=== PATIENT | female | born 1955 | race Caucasian/White ===

== ENCOUNTER → 2016-04-25 | Outpatient (CLI) | payer MEDICAID ==
[2016-04-25 10:14] LABS: Basophils # (A) 0.1 k/uL (0-0.2); Basophils % (A) 1 %; CH 31.5; Eosinophils # (A) 0.3 k/uL (0-0.7); Eosinophils % (A) 3 %; HCT 46.3 % (34.0-46.0); HDW 2.45; HGB 14.7 gm/dL (11.4-16.0); Luc # (Auto) 0.18; Luc % (Auto) 2; Lymphocytes # (A) 2.3 k/uL (1.0-4.8); Lymphocytes % (A) 29 %; MCH 30.4 pg (25.0-35.0); MCHC 31.7 g/dL (31.0-37.0); MCV 95.8 fL (80.0-100.0); Mean Platelet Volume 6.4; Monocytes # (A) 0.3 k/uL (0-1.0); Monocytes % (A) 4 %; Neutrophils # (A) 4.9 k/uL (1.3-7.7); Neutrophils % (A) 61 %; RBC 4.84 m/uL (3.80-5.40); RDW 13.5 % (11.5-15.5); WBC 8.1 k/uL (3.8-10.6); WBC (Perox) 8.47
[2016-04-25 10:25] LABS: Hemoglobin A1C 5.5 % (4.2-6.1)
[2016-04-25 10:46] LABS: ALT 23 U/L (9-52); AST 18 U/L (14-36); Alkaline Phosphatase 65 U/L (38-126); Anion Gap 11 mmol/L; Blood Urea Nitrogen 18 mg/dL (7-17); Calcium 9.4 mg/dL (8.4-10.2); Carbon Dioxide 28 mmol/L (22-30); Chloride 105 mmol/L (98-107); Cholesterol 169 mg/dL (<200); Glucose 115 mg/dL (74-99); HDL Cholesterol 49 mg/dL (40-60); Non-African American GFR(MDRD) >60 (>60 ml/min/1.73 sqM); Potassium 4.3 mmol/L (3.5-5.1); Sodium 144 mmol/L (137-145); Triglycerides 103 mg/dL (<150)
== END ==
LOC: LABWHC1 09:48
PROVIDERS: ATTEND Family Medicine
DX: E03.9 Hypothyroidism, unspecified (principal); E11.9 Type 2 diabetes mellitus without complications
CPT/HCPCS: 36415; 80053; 80061; 83036; 84443; 85025

== ENCOUNTER 2016-11-21 15:01 | Inpatient (IN) | payer MEDICAID ==
[2016-11-21] MEDS ORDERED: SODIUM CHLORIDE 0.9% 1,000 ML IV STA (15:36)
[2016-11-21] MEDS ORDERED: DILTIAZEM 125 MG in SODIUM CHLORIDE 0.9% 100 ML IV STA (15:36)
[2016-11-21] MEDS ORDERED: ASPIRIN 81 MG PO STA (15:36)
[2016-11-21] MEDS ORDERED: HEPARIN SODIUM,PORCINE 5,000 UNIT/ML 1 ML VIAL IV ONE (15:37)
--- NOTE | 2016-11-21 15:40 | ED ---
Arrhythmia/Palpitations HPI - General Chief Complaint: Arrhythmia/Palpitations Stated Complaint: Dr Gtz/Deana rate high Time Seen by Provider: 11/21/16 15:27 Source: patient, RN notes reviewed Mode of arrival: ambulatory Limitations: no limitations - History of Present Illness Initial Comments: This is a 61-year-old female with a benign history other than diabetes who states she was seen in her doctor's office today and found to have atrial fibrillation with a rapid ventricular response. She denies any chest pain shortness of breath palpitations surgical dyspnea lightheadedness dizziness or any other symptoms. She's not sure how long this is been going on. No weight loss weight gain no edema to her lower extremities. MD Complaint: atrial fibrillation - Related Data Home Medications Medication Instructions Recorded Confirmed Lovastatin [Mevacor] 40 mg PO HS 11/21/16 11/21/16 Naproxen Sodium [Aleve] 220 mg PO BID PRN 11/21/16 11/21/16 metFORMIN HCL [Glucophage] 500 mg PO BID 11/21/16 11/21/16 Allergies Allergy/AdvReac Type Severity Reaction Status Date / Time latex Allergy Rash/Hives Verified 11/21/16 16:18 Review of Systems ROS Statement: Those systems with pertinent positive or pertinent negative responses have been documented in the HPI. ROS Other: All systems not noted in ROS Statement are negative. Past Medical History Past Medical History: Diabetes Mellitus History of Any Multi-Drug Resistant Organisms: None Reported Past Surgical History: Joint Replacement Additional Past Surgical History / Comment(s): rt shoulder Past Psychological History: No Psychological Hx Reported Smoking Status: Never smoker Past Alcohol Use History: None Reported Past Drug Use History: None Reported General Exam - General Exam Comments Initial Comments: This is a well-developed well-nourished awake alert oriented x 3 female Limitations: no limitations General appearance: alert, in no apparent distress Head exam: Present: atraumatic, normocephalic, normal inspection Eye exam: Present: normal appearance, PERRL, EOMI. Absent: scleral icterus, conjunctival injection, periorbital swelling ENT exam: Present: normal exam, mucous membranes moist Neck exam: Present: normal inspection. Absent: tenderness, meningismus, lymphadenopathy Respiratory exam: Present: normal lung sounds bilaterally. Absent: respiratory distress, wheezes, rales, rhonchi, stridor Cardiovascular Exam: Present: tachycardia, irregular rhythm. Absent: systolic murmur, diastolic murmur, rubs, gallop, clicks GI/Abdominal exam: Present: soft, normal bowel sounds. Absent: distended, tenderness, guarding, rebound, rigid Extremities exam: Present: normal inspection, full ROM, normal capillary refill. Absent: tenderness, pedal edema, joint swelling, calf tenderness Back exam: Present: normal inspection Neurological exam: Present: alert, oriented X3, CN II-XII intact Psychiatric exam: Present: normal affect, normal mood Skin exam: Present: warm, dry, intact, normal color. Absent: rash Course Vital Signs 11/21/16 11/21/16 11/21/16 15:19 15:34 15:39 Temperature 97.5 F L Pulse Rate 154 H 159 H Pulse Rate [ 154 H Bilateral] Respiratory 20 20 Rate Blood Pressure 161/119 149/110 O2 Sat by Pulse 98 98 Oximetry 11/21/16 16:38 Temperature Pulse Rate 138 H Pulse Rate [ Bilateral] Respiratory 20 Rate Blood Pressure 162/92 O2 Sat by Pulse 99 Oximetry - Reevaluation(s) Reevaluation #1: 11/21/16 16:54 Patient continues to have A. fib with RVR with minimal improvement thus far. EKG Findings - EKG Results: EKG: interpreted by ERMD (Rapid atrial fibrillation with a rate of 156 QRS 88 QT since QTC of 296/[address] T-wave configuration. This is compared to an EKG submitted from the patient's doctor's office.) Medical Decision Making - Lab Data Result diagrams: 11/21/16 15:38 11/21/16 15:38 Lab Results 11/21/16 11/21/16 11/21/16 Range/Units 15:38 15:38 15:38 WBC 9.8 (3.8-10.6) k/uL RBC 4.92 (3.80-5.40) m/uL Hgb 15.6 (11.4-16.0) gm/dL Hct 47.0 H (34.0-46.0) % MCV 95.6 (80.0-100.0) fL MCH 31.7 (25.0-35.0) pg MCHC 33.2 (31.0-37.0) g/dL RDW 13.0 (11.5-15.5) % Plt Count 330 (150-450) k/uL Neutrophils % 81 % Lymphocytes % 13 % Monocytes % 4 % Eosinophils % 1 % Basophils % 1 % Neutrophils # 7.9 H (1.3-7.7) k/uL Lymphocytes # 1.3 (1.0-4.8) k/uL Monocytes # 0.4 (0-1.0) k/uL Eosinophils # 0.1 (0-0.7) k/uL Basophils # 0.1 (0-0.2) k/uL PT (9.0-12.0) sec INR (<1.2) APTT (22.0-30.0) sec Sodium 141 (137-145) mmol/L Potassium 4.3 (3.5-5.1) mmol/L Chloride 105 (98-107) mmol/L Carbon Dioxide 23 (22-30) mmol/L Anion Gap 13 mmol/L BUN 15 (7-17) mg/dL Creatinine 0.82 (0.52-1.04) mg/dL Est GFR (MDRD) Af Amer >60 (>60 ml/min/1.73 sqM) Est GFR (MDRD) Non-Af >60 (>60 ml/min/1.73 sqM) Glucose 114 H (74-99) mg/dL Calcium 9.5 (8.4-10.2) mg/dL Magnesium 1.9 (1.6-2.3) mg/dL Total Bilirubin 0.6 (0.2-1.3) mg/dL AST 19 (14-36) U/L ALT 29 (9-52) U/L Alkaline Phosphatase 76 (38-126) U/L Total Creatine Kinase 72 (30-135) U/L CK-MB (CK-2) 2.6 H* (0.0-2.4) ng/mL CK-MB (CK-2) Rel Index 3.6 Troponin I <0.012 (0.000-0.034) ng/mL Total Protein 7.2 (6.3-8.2) g/dL Albumin 4.2 (3.5-5.0) g/dL TSH 1.890 (0.465-4.680) mIU/L 11/21/16 Range/Units 15:38 WBC (3.8-10.6) k/uL RBC (3.80-5.40) m/uL Hgb (11.4-16.0) gm/dL Hct (34.0-46.0) % MCV (80.0-100.0) fL MCH (25.0-35.0) pg MCHC (31.0-37.0) g/dL RDW (11.5-15.5) % Plt Count (150-450) k/uL Neutrophils % % Lymphocytes % % Monocytes % % Eosinophils % % Basophils % % Neutrophils # (1.3-7.7) k/uL Lymphocytes # (1.0-4.8) k/uL Monocytes # (0-1.0) k/uL Eosinophils # (0-0.7) k/uL Basophils # (0-0.2) k/uL PT 10.7 (9.0-12.0) sec INR 1.1 (<1.2) APTT 22.8 (22.0-30.0) sec Sodium (137-145) mmol/L Potassium (3.5-5.1) mmol/L Chloride (98-107) mmol/L Carbon Dioxide (22-30) mmol/L Anion Gap mmol/L BUN (7-17) mg/dL Creatinine (0.52-1.04) mg/dL Est GFR (MDRD) Af Amer (>60 ml/min/1.73 sqM) Est GFR (MDRD) Non-Af (>60 ml/min/1.73 sqM) Glucose (74-99) mg/dL Calcium (8.4-10.2) mg/dL Magnesium (1.6-2.3) mg/dL Total Bilirubin (0.2-1.3) mg/dL AST (14-36) U/L ALT (9-52) U/L Alkaline Phosphatase (38-126) U/L Total Creatine Kinase (30-135) U/L CK-MB (CK-2) (0.0-2.4) ng/mL CK-MB (CK-2) Rel Index Troponin I (0.000-0.034) ng/mL Total Protein (6.3-8.2) g/dL Albumin (3.5-5.0) g/dL TSH (0.465-4.680) mIU/L - Radiology Data Radiology results: report reviewed (I did review the x-ray report no acute findings.), image reviewed Critical Care Time Critical Care Time: Yes Critical Care Time: 33 minutes of critical care time which includes initial presentation with history physical labs x-rays. Several reevaluation of the patient to responsive therapy. Discussed with the patient and her regarding findings. Discussion with the admitting physician admission orders and documentation of the above Disposition Clinical Impression: Persistent atrial fibrillation with RVR Disposition: ADMITTED IP TO THIS HOSP Condition: Stable Referrals: Sofia White MD [Primary Care Provider] - 1-2 days
[2016-11-21] MEDS: HEPARIN SODIUM,PORCINE/D5W PMX 25,000 UNIT in DEXTROSE/WATER 1 500ML.BAG IV SCH (15:45)
[2016-11-21 15:53] LABS: Basophils # (A) 0.1 k/uL (0-0.2); Basophils % (A) 1 %; CH 31.7; CHCM 33.3; Eosinophils # (A) 0.1 k/uL (0-0.7); Eosinophils % (A) 1 %; HDW 2.38; HGB 15.6 gm/dL (11.4-16.0); Luc # (Auto) 0.11; Luc % (Auto) 1; Lymphocytes # (A) 1.3 k/uL (1.0-4.8); Lymphocytes % (A) 13 %; MCH 31.7 pg (25.0-35.0); MCHC 33.2 g/dL (31.0-37.0); MCV 95.6 fL (80.0-100.0); Mean Platelet Volume 6.8; Monocytes # (A) 0.4 k/uL (0-1.0); Monocytes % (A) 4 %; Neutrophils # (A) 7.9 k/uL (1.3-7.7); Neutrophils % (A) 81 %; RBC 4.92 m/uL (3.80-5.40); WBC 9.8 k/uL (3.8-10.6); WBC (Perox) 9.78
[2016-11-21 16:03] LABS: INR 1.1 (<1.2); Partial Thromboplastin Time 22.8 sec (22.0-30.0); Prothrombin Time 10.7 sec (9.0-12.0)
[2016-11-21 16:05] LABS: ALT 29 U/L (9-52); AST 19 U/L (14-36); Alkaline Phosphatase 76 U/L (38-126); Anion Gap 13 mmol/L; Blood Urea Nitrogen 15 mg/dL (7-17); Calcium 9.5 mg/dL (8.4-10.2); Carbon Dioxide 23 mmol/L (22-30); Chloride 105 mmol/L (98-107); Glucose 114 mg/dL (74-99); Magnesium 1.9 mg/dL (1.6-2.3); Non-African American GFR(MDRD) >60 (>60 ml/min/1.73 sqM); Potassium 4.3 mmol/L (3.5-5.1); Sodium 141 mmol/L (137-145); Total Bilirubin 0.6 mg/dL (0.2-1.3); Total Protein 7.2 g/dL (6.3-8.2)
[2016-11-21 16:07] LABS: Creatine Kinase 72 U/L (30-135)
--- NOTE | 2016-11-21 16:13 | XR ---
EXAMINATION TYPE: XR chest 2V DATE OF EXAM: 11/21/2016 COMPARISON: NONE HISTORY: Shortness of breath TECHNIQUE: Frontal and lateral views of the chest are obtained. FINDINGS: Scattered senescent parenchymal changes noted. Hyperinflation compatible with COPD. No evidence for infiltrate. No evidence for atelectasis. Heart size is enlarged. Mediastinal structures are stable and grossly unremarkable. No evidence for hilar prominence. Degenerative changes dorsal spine. IMPRESSION: 1. No evidence for acute pulmonary disease.
[2016-11-21 16:19] LABS: Troponin I <0.012 ng/mL (0.000-0.034)
[2016-11-21 16:23] LABS: Creatine Kinase MB 2.6 ng/mL (0.0-2.4)
[2016-11-21] MEDS ORDERED: MAGNESIUM SULFATE-D5W PMX 1 GM in DEXTROSE/WATER 1 100ML.BAG IVPB ONE (16:53)
[2016-11-21] MEDS ORDERED: DILTIAZEM 5 MG/ML 5 ML VIAL IVP STA (16:53)
[2016-11-21] MEDS ORDERED: NALOXONE 0.4 MG/ML 1 ML VIAL IV PRN (16:56)
[2016-11-21] MEDS ORDERED: NAPROXEN 250 MG TAB PO PRN (16:57)
[2016-11-21 17:47] LABS: Glucose,Whole Blood 127 mg/dL (75-99)
[2016-11-21] MEDS: INSULIN LISPRO (humaLOG) 300 UNIT/3 ML VIAL SQ SCH ×2 (17:59→21:55)
[2016-11-21] MEDS: metFORMIN 500 MG TAB PO SCH (18:26)
[2016-11-21 20:55] LABS: Glucose,Whole Blood 106 mg/dL (75-99)
[2016-11-21] MEDS ORDERED: ATORVASTATIN 10 MG TAB PO SCH (21:00)
[2016-11-21 21:34] LABS: Hemoglobin A1C 5.5 % (4.2-6.1)
[2016-11-21] MEDS ORDERED: HEPARIN SODIUM,PORCINE 5,000 UNIT/ML 1 ML VIAL IV PRN (22:34)
[2016-11-21 23:13] VITALS: RESP 16
--- NOTE | 2016-11-22 05:38 | HP ---
HISTORY AND PHYSICAL DATE OF ADMISSION: 11/21/2016 CHIEF COMPLAINT: Atrial fibrillation. HISTORY OF PRESENT ILLNESS: This 61-year-old woman with a past medical history of multiple medical problems including diabetes mellitus, history of DJD being followed by Dr. White in the outpatient setting. The patient was apparently in the office today for a checkup and evaluation showed high pulse rate . Patient taken to [facility] and admitted to the hospital for further evaluation and treatment. Patient started on Cardizem and heparin. The patient running heart rate is getting controlled but still elevated and with irregularity also. Cardiology evaluation in progress. There is no history of fever, rigors. No history of headache, loss of consciousness or seizures. PAST MEDICAL HISTORY: Hypertension and diabetes mellitus, type 2. HOME MEDICATIONS: 1. Metformin 500 mg p.o. b.i.d. 2. Aleve 220 mg b.i.d. p.r.n. 3. Mevacor 40 mg q.h.s. ALLERGIES: LATEX. FAMILY HISTORY: No history of heart disease or strokes in the family. SOCIAL HISTORY: No history of smoking. No history of alcohol. REVIEW OF SYSTEMS: ENT: No diminished vision or hearing. Cardiovascular as mentioned. Respiratory : There is no cough or hemoptysis. GI no nausea or vomiting. no dysuria. Nervous system no numbness, weakness. Allergy no asthma or hayfever. Musculoskeletal: As mentioned earlier. Hematology/Oncology: No history of anemia. Endocrine as mentioned earlier. Constitutional: As mentioned earlier. Dermatology: Negative. Rheumatology negative. Psychiatric is negative. PHYSICAL EXAMINATION: Alert and oriented times three. Pulse is 130 and irregular. Blood pressure is 140/70, respiration 18, temperature 97.3, pulse ox 97% on room air. HEENT conjunctivae normal. Oral mucosa moist. Neck is no jugular venous distention. No carotid bruit. No lymph node enlargement. Cardiovascular system: S1, S2 irregular. No S3, no S4. Respiratory: Breath sounds diminished at the bases no rhonchi, no crackles. ABDOMEN: Soft, nontender. No mass palpable. No carotid bruit. No lymph node enlargement. No hepatosplenomegaly. Legs no edema. No swelling. Nervous system: Higher functions as mentioned earlier. Moves all four limbs. No focal deficits. Lymphatics: No lymph nodes palpable in the neck, axillae or groin. Skin no ulcer, rash or bleeding. LABS: CBC within normal limits. Glucose 149. ASSESSMENT: 1. Atrial fibrillation with fast ventricular rate. New onset. 2. Diabetes mellitus type 2. 3. Degenerative joint disease. RECOMMENDATIONS AND DISCUSSION: In this 61-year-old woman who presented with multiple complex medical issues, we will monitor the patient closely. Continue the current management and symptomatic treatment. I recommend resume the home medications. Monitor blood sugars closely. Otherwise continue the Cardizem, continue IV heparin, 2D echo with Doppler. Cardiology consultation. Otherwise, we will continue to monitor. Overall prognosis guarded. Further recommendations to follow. Copy of dictation being forwarded to Dr. White who is the primary care physician. Patient might be a candidate for oral anticoagulant agents. MMODL / IJN: [id number] / MTDBari
[2016-11-22 06:24] LABS: Glucose,Whole Blood 121 mg/dL (75-99)
[2016-11-22] MEDS: INSULIN LISPRO (humaLOG) 300 UNIT/3 ML VIAL SQ SCH ×4 (06:29→20:57)
[2016-11-22] MEDS: metFORMIN 500 MG TAB PO SCH (06:55)
--- NOTE | 2016-11-22 09:49 | ECHOF ---
Referral Reason:afib MEASUREMENTS -------- HEIGHT: 162.6 cm WEIGHT: 95.3 kg BP: 130/86 RVIDd: 3.7 cm (< 3.3) IVSd: 1.3 cm (0.6 - 1.1) LVIDd: 5.7 cm (3.9 - 5.3) LVPWd: 1.3 cm (0.6 - 1.1) IVSs: 1.7 cm LVIDs: 3.6 cm LVPWs: 1.8 cm LA Diam: 4.9 cm (2.7 - 3.8) LAESV Index (A-L): 50.39 ml/m Ao Diam: 3.0 cm (2.0 - 3.7) AV Cusp: 2.3 cm (1.5 - 2.6) MV EXCURSION: 11.800 mm (> 18.000) MV EF SLOPE: 49 mm/s (70 - 150) EPSS: 1.8 cm RAP: 5.00 mmHg RVSP: 30.96 mmHg FINDINGS -------- Atrial fibrillation. This was a technically good study. The left ventricle is mildly dilated. There is mild concentric left ventricular hypertrophy. Overall left ventricular systolic function is moderate-severely impaired with, an EF between 30 - 35 %. The right ventricle is mildly enlarged. LA is severely dilated >40 ml/m2 The right atrium is normal in size. There is mild aortic valve sclerosis. Mild mitral annular calcification present. Mild mitral regurgitation is present. Mild tricuspid regurgitation present. Right ventricular systolic pressure is normal at < 35 mmHg. Trace/mild (physiologic) pulmonic regurgitation. The aortic root size is normal. Normal inferior vena cava with normal inspiratory collapse consistent with estimated right atrial pressure of 5 mmHg. There is no pericardial effusion. CONCLUSIONS -------- 1. Atrial fibrillation. 2. Mild mitral annular calcification present. 3. Mild mitral regurgitation is present. 4. Mild tricuspid regurgitation present. 5. Right ventricular systolic pressure is normal at < 35 mmHg. 6. Trace/mild (physiologic) pulmonic regurgitation. 7. The aortic root size is normal. 8. Normal inferior vena cava with normal inspiratory collapse consistent with estimated right atrial pressure of 5 mmHg. 9. There is no pericardial effusion. 10. This was a technically good study. 11. The left ventricle is mildly dilated. 12. There is mild concentric left ventricular hypertrophy. 13. Overall left ventricular systolic function is moderate-severely impaired with, an EF between 30 - 35 %. 14. The right ventricle is mildly enlarged. 15. LA is severely dilated >40 ml/m2 16. The right atrium is normal in size. 17. There is mild aortic valve sclerosis. CLINICAL NURSING COORDINATOR: Valorie Lorenzana RDCS
--- NOTE | 2016-11-22 10:30 | P.CRDCN ---
History of Present Illness Consult date: 11/22/16 Requesting physician: Nick Chau Reason for Consult (text): AF w/RVR History of present illness: This is a pleasant 61-year-old female patient with a history of diabetes and hyperlipidemia. She presented to the emergency department after being seen by her primary care physician for routine follow-up and was found to be in atrial fibrillation with rapid ventricular response with a rate in the 150s. Upon visitation in the emergency Department patient was found to be in atrial fibrillation with rapid ventricular response with a rate in the 150s with ST-T wave abnormalities. Chest x-ray showed no acute cardiopulmonary process. Potassium and magnesium were within normal limits. TSH is normal with BUN of 15 and creatinine of 0.82. First troponin less than 0.012. She was started on Cardizem drip, after receiving 15 mg bolus, at 5 mg an hour. We obtained a 2-D echo with Doppler this morning shows moderate to severely impaired LV systolic function with an ejection fraction of 30-35% with a mildly dilated LV, mild mitral regurgitation and mild tricuspid regurgitation. She has not been experiencing any palpitations, chest discomfort, shortness of breath, orthopnea, dizziness, lightheadedness or syncope. She has not noticed any lower extremity edema. In speaking with her, it sounds as if she has had an episode of atrial fibrillation rapid ventricular response about 20 years ago she followed for a short time with cardiology underwent stress testing and echo at that time which according to the patient was all normal. Past Medical History Past Medical History: Diabetes Mellitus, Hyperlipidemia Additional Past Medical History / Comment(s): BRONCHITIS, ECZEMA History of Any Multi-Drug Resistant Organisms: None Reported Past Surgical History: Joint Replacement Additional Past Surgical History / Comment(s): rt shoulder HEMIARTHROPLASTY, COLONOSCOPY Past Anesthesia/Blood Transfusion Reactions: No Reported Reaction Smoking Status: Never smoker - Past Family History Mother Family Medical History: Cancer Additional Family Medical History / Comment(s): STOMACH CANCER Father History Unknown: Yes Additional Family Medical History / Comment(s): AT AGE 87 NOT SURE OF THE CAUSE Medications and Allergies Home Medications Medication Instructions Recorded Confirmed Type Lovastatin [Mevacor] 40 mg PO HS 11/21/16 11/21/16 History Naproxen Sodium [Aleve] 220 mg PO BID PRN 11/21/16 11/21/16 History metFORMIN HCL [Glucophage] 500 mg PO BID 11/21/16 11/21/16 History Allergies Allergy/AdvReac Type Severity Reaction Status Date / Time latex Allergy Rash/Hives Verified 11/21/16 16:18 Physical Exam Vitals: Vital Signs Temp Pulse Pulse Resp BP BP Pulse Ox 11/22/16 07:57 97.1 F L 102 H 16 140/83 98 11/22/16 04:00 97.4 F L 96 16 130/86 98 11/22/16 00:00 97.6 F 94 16 145/83 97 11/21/16 20:00 97.7 F 88 16 136/66 97 11/21/16 18:28 97.3 F L 113 H 18 145/71 97 11/21/16 17:24 97.8 F 11/21/16 17:16 98 16 124/85 99 11/21/16 16:38 138 H 20 162/92 99 11/21/16 15:39 154 H 11/21/16 15:34 159 H 20 149/110 98 11/21/16 15:19 97.5 F L 154 H 20 161/119 98 Intake and Output 11/21/16 11/22/16 11/22/16 22:59 06:59 14:59 Intake Total 376.325 365 Balance 376.325 365 Intake: Intake, IV Titration 136.325 125 Amount Diltiazem 125 mg In 25 Sodium Chloride 0.9% 100 ml @ 5 MG/HR 5 mls/hr IV .Q24H STA Rx#:[id number] Heparin Sodium,Porcine/ 136.325 D5w Pmx 25,000 unit In Dextrose/Water 1 500ml. bag @ 11 UNITS/KG/HR 19. 95 mls/hr IV .Q24H CARMELITA Rx #:[id number] Magnesium Sulfate-D5w Pmx 100 1 gm In Dextrose/Water 1 100ml.bag @ 100 mls/hr IVPB ONCE ONE Rx#: [id number] Oral 240 240 Other: Voiding Method Toilet Toilet # Voids 2 Weight 90.718 kg 95.4 kg PHYSICAL EXAMINATION: HEENT: Head is atraumatic, normocephalic. Pupils equal, round. Neck is supple. There is no elevated jugular venous pressure. HEART EXAMINATION: Heart sounds irregularly irregular, S1 and S2 normal. No murmur or gallop heard. CHEST EXAMINATION: Lungs are clear to auscultation and precussion. No chest wall tenderness is noted on palpation or with deep breathing. ABDOMEN: Soft, nontender. Bowel sounds are heard. No organomegaly noted. EXTREMITIES: 2+ peripheral pulses with no evidence of peripheral edema and no calf tenderness noted. NEUROLOGIC patient is awake, alert and oriented x3. . Results 11/21/16 15:38 11/21/16 15:38 Cardiac Enzymes 11/21/16 11/21/16 Range/Units 15:38 15:38 AST 19 (14-36) U/L CK-MB (CK-2) 2.6 H* (0.0-2.4) ng/mL Troponin I <0.012 (0.000-0.034) ng/mL Coagulation 11/21/16 11/21/16 11/22/16 Range/Units 15:38 21:28 04:27 PT 10.7 (9.0-12.0) sec APTT 22.8 37.8 H 53.8 H (22.0-30.0) sec CBC 11/21/16 Range/Units 15:38 WBC 9.8 (3.8-10.6) k/uL RBC 4.92 (3.80-5.40) m/uL Hgb 15.6 (11.4-16.0) gm/dL Hct 47.0 H (34.0-46.0) % Plt Count 330 (150-450) k/uL Comprehensive Metabolic Panel 11/21/16 Range/Units 15:38 Sodium 141 (137-145) mmol/L Potassium 4.3 (3.5-5.1) mmol/L Chloride 105 (98-107) mmol/L Carbon Dioxide 23 (22-30) mmol/L BUN 15 (7-17) mg/dL Creatinine 0.82 (0.52-1.04) mg/dL Glucose 114 H (74-99) mg/dL Calcium 9.5 (8.4-10.2) mg/dL AST 19 (14-36) U/L ALT 29 (9-52) U/L Alkaline Phosphatase 76 (38-126) U/L Total Protein 7.2 (6.3-8.2) g/dL Albumin 4.2 (3.5-5.0) g/dL Current Medications Generic Name Dose Route Start Last Admin Trade Name Freq PRN Reason Stop Dose Admin Atorvastatin Calcium 10 mg 11/21/16 21:00 11/21/16 21:56 Lipitor PO 10 mg HS CARMELITA Administration Heparin Sodium (Porcine) 0 unit 11/21/16 22:34 11/22/16 00:25 Heparin IV 4,000 unit PER PROTOCOL PRN Administration Low PTT Protocol Diltiazem HCl 125 mg/ Sodium 125 mls @ 5 mls/hr 11/21/16 15:36 11/21/16 16:21 Chloride IV 11/22/16 15:35 5 mg/hr .Q24H STA 5 mls/hr Protocol Administration 5 MG/HR Heparin Sodium/Dextrose 25,000 500 mls @ 19.95 mls/hr 11/21/16 15:45 22:35 unit/ IV Solution IV 14 units/kg/hr .Q24H CARMELITA 25.4 mls/hr Protocol Titration 11 UNITS/KG/HR Insulin Human Lispro 0 unit 11/21/16 17:30 11/22/16 06:29 Humalog SQ Not Given ACHS [facility] Protocol Metformin HCl 500 mg 11/21/16 17:30 11/22/16 06:55 Glucophage PO 500 mg AC-BID CARMELITA Administration Naloxone HCl 0.2 mg 11/21/16 16:56 Narcan IV Q2M PRN Opioid Reversal Naproxen 250 mg 11/21/16 16:57 Naprosyn PO BID PRN Mild Pain Intake and Output 11/21/16 11/22/16 11/22/16 22:59 06:59 14:59 Intake Total 376.325 365 Balance 376.325 365 Intake: Intake, IV Titration 136.325 125 Amount Diltiazem 125 mg In 25 Sodium Chloride 0.9% 100 ml @ 5 MG/HR 5 mls/hr IV .Q24H STA Rx#:[id number] Heparin Sodium,Porcine/ 136.325 D5w Pmx 25,000 unit In Dextrose/Water 1 500ml. bag @ 11 UNITS/KG/HR 19. 95 mls/hr IV .Q24H CARMELITA Rx #:[id number] Magnesium Sulfate-D5w Pmx 100 1 gm In Dextrose/Water 1 100ml.bag @ 100 mls/hr IVPB ONCE ONE Rx#: [id number] Oral 240 240 Other: Voiding Method Toilet Toilet # Voids 2 Weight 90.718 kg 95.4 kg 11/21/16 15:38 11/21/16 15:38 EKG Interpretations (text) A fibrillation with rapid ventricular response Assessment and Plan Plan: Assessment and plan #1 atrial fibrillation with rapid ventricular response, new onset, duration unknown #2 cardiomyopathy of unknown etiology with an ejection fraction of 30-35% #3 diabetes #4 hyperlipidemia #5 newly diagnosed hypertension Transportation Analyst perspective, we will start the patient on a beta darby and HARVINDER inhibitor. According to Silvestre Vasc score, patient will require long-term anticoagulation. We will check coverage for Eliquis. Continue Heparin for now. We will schedule the patient for cardiac catheterization tomorrow to rule out underlying CAD as cause of cardiomyopathy. Further recommendations to follow. POOL COORDINATOR note has been reviewed, I agree with a documented findings and plan of care. Patient was seen and examined.
[2016-11-22 11:38] LABS: Glucose,Whole Blood 111 mg/dL (75-99)
[2016-11-22] MEDS ORDERED: METOPROLOL TARTRATE 25 MG TAB PO SCH (12:00)
[2016-11-22] MEDS: LISINOPRIL 2.5 MG TAB PO SCH (12:51)
[2016-11-22] MEDS ORDERED: NITROGLYCERIN SL TABS 0.4 MG TAB SUBLINGUAL PRN (12:58)
[2016-11-22] MEDS ORDERED: ALPRAZolam 0.25 MG TAB PO PRN (12:58)
[2016-11-22] MEDS ORDERED: ATORVASTATIN 80 MG TAB PO STA (12:58)
[2016-11-22] MEDS ORDERED: ASPIRIN 325 MG TAB PO STA (12:58)
[2016-11-22] MEDS ORDERED: ALPRAZolam 0.5 MG TAB PO PRN (12:58)
[2016-11-22] MEDS ORDERED: SODIUM CHLORIDE 0.9% 1,000 ML in EMPTY BAG 1 BAG IV ONE (12:58)
--- NOTE | 2016-11-22 13:06 | P.PN ---
Progress Note - Text This is an addendum to the dictated cardiology consultation. The patient presented to her primary care physician's office and was noted to be tachycardic , and atrial fibrillation of unknown duration. She has no knowledge of the arrhythmia and denies any change in her energy, breathing or symptoms of dizziness. She is active physically without significant limitations. She had an episode of arrhythmia and palpitation 20 years ago and workup was unremarkable without any recurrence since. On the physical examination she has no signs of heart failure, no peripheral edema or lung congestion. In view of the cardiomyopathy noted on the echocardiogram, the atrial fibrillation of unknown duration but recent diagnosis, a history of diabetes and hyperlipidemia I would recommend to add a beta darby and an HARVINDER inhibitor and I would recommend to proceed with cardiac catheterization to further assess her status and guide her treatment. Depending on the outcome of her testing further recommendations will be made. Thank you for this consult we will follow with you.
[2016-11-22] MEDS: HEPARIN SODIUM,PORCINE/D5W PMX 25,000 UNIT in DEXTROSE/WATER 1 500ML.BAG IV SCH (16:46)
[2016-11-22 16:47] LABS: Glucose,Whole Blood 99 mg/dL (75-99)
--- NOTE | 2016-11-22 17:06 | PN ---
PROGRESS NOTE DATE OF SERVICE: 11/22/2016 This 61-year-old woman who presented with significant atrial fibrillation with fast ventricular rate also had a 2D echo. The 2D echo showed ejection fraction about 30% to 35% of undetermined etiology. The patient is being closely monitored. Patient is on Cardizem drip as well as heparin drip. LA was more than 40 mL/square meter. No chest pain. No palpitations. PHYSICAL EXAMINATION: On exam, alert and oriented x3. Pulse is 102, tachycardic, regular. Blood pressure 137/90, respiration 16, temperature 97.1, pulse ox 97% on room air. HEENT: Conjunctivae normal. Oral mucosa moist. NECK: No jugular venous distention. No carotid bruit. No lymph node enlargement. CARDIOVASCULAR SYSTEM: S1, S2 irregular. Patient No S3. No S4. RESPIRATORY SYSTEM: Breath sounds diminished at the bases. A few rhonchi. No crackles. ABDOMEN: Soft, nontender. No mass palpable. LEGS: No edema. No swelling. NERVOUS SYSTEM: Higher functions as mentioned earlier. Moves all 4 limbs. No focal motor or sensory deficit. LYMPHATICS: No lymph node palpable in neck, axillae or groin. SKIN: No ulcer, rash, bleeding. LABS: Labs at this time show APTT noted. Otherwise, glucose 111, magnesium 2.4. ASSESSMENT: 1. Atrial fibrillation with fast ventricular rate, new onset. 2. Ejection fraction 30% to 35% with chronic systolic dysfunction, possibly cardiomyopathy. 3. Diabetes mellitus, type 2. 4. Degenerative joint disease. 5. Increased random blood sugar. RECOMMENDATIONS AND DISCUSSION: In this 61-year-old woman who presented with multiple complex medical issues, we will monitor the patient closely, continue the current medications, continue with symptomatic treatment. Otherwise at this time I would recommend continuing with Cardizem. Continue with IV heparin. Outpatient Eliquis. Further recommendations to follow. MMODL / IJN: [id number] / [id number]
[2016-11-22 20:54] LABS: Glucose,Whole Blood 124 mg/dL (75-99)
[2016-11-22] MEDS: METOPROLOL TARTRATE 50 MG TAB PO SCH (20:59)
[2016-11-23 06:14] LABS: CH 31.8; HCT 41.6 % (34.0-46.0); HDW 2.34; HGB 13.8 gm/dL (11.4-16.0); MCHC 33.1 g/dL (31.0-37.0); MCV 96.8 fL (80.0-100.0); Mean Platelet Volume 6.8; RDW 13.1 % (11.5-15.5); WBC 7.3 k/uL (3.8-10.6)
[2016-11-23] MEDS: INSULIN LISPRO (humaLOG) 300 UNIT/3 ML VIAL SQ SCH ×4 (06:25→21:03)
[2016-11-23 06:34] LABS: Anion Gap 7 mmol/L; Blood Urea Nitrogen 15 mg/dL (7-17); Carbon Dioxide 24 mmol/L (22-30); Chloride 109 mmol/L (98-107); Glucose 97 mg/dL (74-99); Non-African American GFR(MDRD) >60 (>60 ml/min/1.73 sqM); Potassium 3.8 mmol/L (3.5-5.1); Sodium 140 mmol/L (137-145)
[2016-11-23 06:37] LABS: Glucose,Whole Blood 126 mg/dL (75-99)
[2016-11-23] MEDS: LISINOPRIL 2.5 MG TAB PO SCH ×2 (07:01→21:15)
[2016-11-23] MEDS: METOPROLOL TARTRATE 50 MG TAB PO SCH ×3 (07:01→21:14)
[2016-11-23] MEDS ORDERED: ASPIRIN 325 MG TAB PO STA (08:04)
[2016-11-23] MEDS ORDERED: fentaNYL (PF) 50 MCG/ML 2 ML AMP ONE (10:31)
[2016-11-23] MEDS ORDERED: LIDOCAINE 2% INJ 20 MG/ML (20 ML MDV) ONE (10:31)
[2016-11-23] MEDS ORDERED: diphenhydrAMINE 50 MG/ML 1 ML VIAL ONE (10:31)
[2016-11-23] MEDS ORDERED: VERAPAMIL 2.5 MG/ML 2 ML AMP ONE (10:31)
[2016-11-23] MEDS ORDERED: IV FLUID CONTINUATION 1,000 ML IV ONE (10:45)
[2016-11-23] MEDS ORDERED: fentaNYL (PF) 50 MCG/ML 2 ML AMP IV ONE (10:54)
[2016-11-23] MEDS ORDERED: diphenhydrAMINE 50 MG/ML 1 ML VIAL IVP ONE (10:54)
[2016-11-23] MEDS ORDERED: METOPROLOL TARTRATE 5 MG/5 ML VIAL IVP ONE (11:04)
[2016-11-23] MEDS: METOPROLOL TARTRATE 5 MG/5 ML VIAL IVP ONE ×2 (11:06→11:11)
[2016-11-23] MEDS ORDERED: HEPARIN SODIUM 1,000 UN/ML (10ML VL) ONE (11:09)
[2016-11-23] MEDS ORDERED: LIDOCAINE 2% INJ 20 MG/ML SQ ONE (11:10)
[2016-11-23] MEDS ORDERED: VERAPAMIL SYRINGE (5 MG/10 ML) INTRAARTER ONE (11:11)
[2016-11-23] MEDS ORDERED: HEPARIN SODIUM 1,000 UN/ML (10ML VL) IV ONE (11:12)
[2016-11-23] MEDS ORDERED: IOHEXOL 350 MG/ML 125ML BOTTLE INJ ONE (11:25)
[2016-11-23] MEDS ORDERED: RX INFO: IV CONTRAST WAS GIVEN 1 EACH MISC MISCELLANE PRN (11:36)
[2016-11-23] MEDS ORDERED: SODIUM CHLORIDE 0.9% 1,000 ML IV SCH (11:45)
[2016-11-23 12:25] LABS: Glucose,Whole Blood 106 mg/dL (75-99)
--- NOTE | 2016-11-23 13:01 | CC ---
CARDIAC CATHETERIZATION REPORT Mrs. Vazquez is a 61-year-old female with known history of diabetes and hyperlipidemia, who presented with evidence of atrial fibrillation and her echocardiogram revealed evidence of severe cardiomyopathy of unknown etiology. In view of her presentation and her risk factors, recommendations were made regarding cardiac catheterization. The procedure as well as the risks and complication were discussed with the patient who is in full understanding and agreement. PROCEDURE: Patient was brought to label folder in a fasting semi-sedated state after receiving fentanyl and Benadryl and achieving moderate conscious sedated state. Using Xylocaine anesthesia in the Seldinger technique, a 6-[place] sheath was introduced in the right radial artery. Selective right and left coronary angiography was performed using 5- [place] 3-1/2 bend right and left Vickey catheter. Multiple view of the coronary artery including hemiaxial views were obtained. Following that, 5-[place] tight pigtail catheter was introduced in the left ventricle and a 30-degree ORTEGA view of the left ventricle was obtained. Following that, catheter and sheath were removed. Hemostasis was obtained with deployment of a TR band. There was no immediate complication. Patient was returned to her room in stable condition. Of note, the patient received 5000 units of intravenous heparin as well as intra-arterial verapamil. FINDINGS: FLUOROSCOPY: There was mild calcification involving the proximal left anterior descending artery. LEFT MAIN: This is a large-size vessel, trifurcating into the left anterior descending artery, ramus intermedius, and left circumflex. Left main coronary artery has no evidence of high-grade stenosis. LEFT ANTERIOR DESCENDING ARTERY: This is a large-size vessel reaching to the apex giving rise to 2 diagonal branches. The left anterior descending artery has mild intimal disease proximally of 20% without any evidence of high-grade stenosis. RAMUS INTERMEDIUS: This is a moderately-sized vessel reaching to the apical lateral wall and has no evidence of high-grade stenosis. LEFT CIRCUMFLEX: This is a codominant vessel giving rise to 2 large obtuse marginal branches distally to a small PDA and a PLV. The left circumflex and its branches have no evidence of obstructive coronary artery disease. RIGHT CORONARY ARTERY: This is a moderately-size codominant vessel giving rise to a PDA distally. The PLV is small. The right coronary artery and its branches have no evidence of obstructive coronary artery disease. LEFT VENTRICULOGRAM: Left ventriculogram is performed in 30-degree ORTEGA view and a revealed dilated left ventricle with severe global hypokinesis. Ejection fraction 30% to 35% with arrhythmia induced mitral regurgitation. HEMODYNAMICS: There was no gradient across the aortic valve. The left ventricular end- diastolic pressure was 16 to 18 mmHg. CONCLUSION: 1. Mild intimal disease in the left anterior descending artery. 2. Severely impaired left ventricular systolic function. RECOMMENDATION: Those finding are consistent with nonischemic cardiomyopathy. At this time, we will optimize her medical regimen and depending on her progress, further recommendation will be made. Those findings and recommendation were discussed with the patient and her family who are in full understanding and agreement. Duration of the procedure is 32 minutes. MMODL / IJN: [id number] /
--- NOTE | 2016-11-23 13:07 | LTR ---
November 23, 2016 Re: Rosemarie Salinasberry Dear Dr. White: I had the opportunity to perform cardiac catheterization on Mrs. Vazquez at [facility] the 23 of November and a full copy of the procedure note will be forwarded to you. In brief, she was found to have mild intimal disease involving the proximal LAD with a severely impaired left ventricular systolic function consistent with nonischemic cardiomyopathy and based on those findings, I recommend to continue on the present medical regimen with aggressive adjustment of her treatment and depending on her progress further recommendation will be made. Thank you again for allowing me the opportunity to participate in her care. Please feel free to call for any questions. Sincerely yours, MD ROCKY Cassidy / MALN: [id number] /
[2016-11-23] MEDS: SPIRONOLACTONE 25 MG TAB PO SCH (16:47)
[2016-11-23 17:01] LABS: Glucose,Whole Blood 77 mg/dL (75-99)
[2016-11-23] MEDS ORDERED: RIVAROXABAN 10 MG TAB PO SCH (17:30)
--- NOTE | 2016-11-23 17:43 | PN ---
PROGRESS NOTE DATE OF SERVICE: 11/23/2016 This 61-year-old woman was admitted with atrial fibrillation, also with features of cardiomyopathy. Cardiac catheterization done by Cardiology today showed only mild intimal disease. Otherwise, severely impacted LV dysfunction was noted. No chest pain. No palpitations. No fever. The heart rate is improved. PHYSICAL EXAM: Alert and oriented x3. The pulse is 80, blood pressure is 113/71, respirations 16, temperature is 97 degrees, pulse ox is 97% on room. HEENT: Conjunctivae normal. Oral mucosa moist. NECK: No jugular venous distention. No carotid bruits. No lymph node enlargement. CARDIOVASCULAR: S1, S2 muffled. RESPIRATORY: Breath sounds diminished in the bases. No rhonchi. No crackles. ABDOMEN: Soft, nontender. LEGS: No edema. No swelling. NERVOUS SYSTEM: No focal deficits. LABS: CBC within normal limits. Sodium 140, potassium 3.8. ASSESSMENT: 1. Atrial fibrillation with a fast ventricular rate, new onset, paroxysmal. 2. Ejection fraction 30% to 35% with chronic systolic dysfunction, possibly cardiomyopathy. 3. Status post cardiac catheterization showing only minimal intimal disease. 4. Diabetes type 2. 5. Degenerative joint disease history. 6. Increased random blood sugar. RECOMMENDATIONS AND DISCUSSION: Continue current medications and continue symptomatic treatment. Otherwise at this time I recommend to continue with current medications. Xarelto has been initiated otherwise cardiac cath reports noted. Guarded prognosis. Further recommendations to follow. MMODL / IJN: [id number] /
[2016-11-23 20:47] LABS: Glucose,Whole Blood 85 mg/dL (75-99)
[2016-11-23] MEDS ORDERED: ATORVASTATIN 40 MG TAB PO SCH (21:00)
[2016-11-24 06:15] LABS: Glucose,Whole Blood 90 mg/dL (75-99)
[2016-11-24] MEDS: INSULIN LISPRO (humaLOG) 300 UNIT/3 ML VIAL SQ SCH ×2 (06:28→11:28)
[2016-11-24 06:41] LABS: Anion Gap 8 mmol/L; Blood Urea Nitrogen 16 mg/dL (7-17); Calcium 9.2 mg/dL (8.4-10.2); Carbon Dioxide 26 mmol/L (22-30); Chloride 106 mmol/L (98-107); Glucose 89 mg/dL (74-99); Non-African American GFR(MDRD) >60 (>60 ml/min/1.73 sqM); Potassium 3.9 mmol/L (3.5-5.1); Sodium 140 mmol/L (137-145)
[2016-11-24] MEDS: METOPROLOL TARTRATE 50 MG TAB PO SCH (08:30)
[2016-11-24] MEDS: LISINOPRIL 2.5 MG TAB PO SCH (08:30)
[2016-11-24] MEDS: SPIRONOLACTONE 25 MG TAB PO SCH (08:31)
[2016-11-24 08:44] VITALS: BP 116/63; PULSE 104
[2016-11-24] MEDS ORDERED: LISINOPRIL 5 MG TAB PO SCH (10:23)
--- NOTE | 2016-11-24 10:41 | PN ---
PROGRESS NOTE Mrs. Vazquez is a 61-year-old female who presented with evidence of atrial fibrillation of unknown duration and was found to have significant cardiomyopathy, underwent cardiac catheterization yesterday, was found to have no evidence of significant obstructive coronary artery disease. She is feeling well today, ambulating without difficulty. Denying any chest pain. No dizziness, palpitation. She denies any nausea. No cough. She continues to be at this time on Lipitor 40 mg daily, lisinopril 2.5 mg twice a day, metoprolol tartrate 50 mg 3 times a day, and Xarelto 20 mg daily, and spironolactone 25 mg daily. PHYSICAL EXAMINATION: Blood pressure 116/60 with a heart in the 90s. LUNGS: Clear. HEART: Irregularly irregular, S1, S2. No S3. No rub. ABDOMEN: Soft, nontender. EXTREMITIES: No edema. Right radial pulse intact. LAB DATA: Revealed BUN and creatinine 16 and 0.7, potassium 3.9. IMPRESSION: 1. Atrial fibrillation of unknown duration, anticoagulated. 2. Nonischemic cardiomyopathy. 3. History of diabetes. 4. Hyperlipidemia. RECOMMENDATION: Patient will be discharged home today and will be followed as an outpatient and if she persists to be in atrial fibrillation, cardioversion will be performed. Close followup of her left ventricular systolic function will be made to see if she is a candidate for an ICD implantation. MMODL / IJN: [id number] /
[2016-11-24 11:27] VITALS: TEMP 97
[2016-11-24 11:33] LABS: Glucose,Whole Blood 97 mg/dL (75-99)
--- NOTE | 2016-11-24 15:51 | P.DS ---
Providers Date of admission: 11/21/16 16:56 Attending physician: Nick Chau Consults: 11/21/16 16:57 Consult Physician Routine Consulting Provider: Wei Yusuf Consult Reason/Comments: Rapid atrial fibrillation Do you want consulting provider notified?: Yes Primary care physician: Sofia Christopher [facility] Course: This 61-year-old woman was admitted to [facility] with the features of atrial fibrillation with fast ventricular rate. Patient treated with Cardizem improved significantly. Atrial fibrillation was of paroxysmal in nature. However a 2-D ago showed ejection fraction 30-35% indicating systolic dysfunction. Cardiac catheterization and by cardiology showed only minimal coronary artery disease. The cardio myopathy was thought to be nonischemic and idiopathic at this time. Medications are adjusted. Patient improved significantly. Patient be discharged in a stable condition with condition with guarded prognosis. Patient is advised to follow-up with the primary physician and cardiology closely in the preceding. On exam vitals stable. Cardio S1 and S2 normal. Respirator system clear to auscultation. Abdomen soft nontender. Final diagnosis 1. Atrial fibrillation with fast ventricular rate new onset paroxysmal. 2. Ejection fraction 30-35% indicating possibly chronic systolic dysfunction possibly cardiomyopathy nonischemic. 3. Status post cardiac catheterization showing only minimal intimal disease. 4. Diabetes was type II 5. DJD. Patient Condition at Discharge: Stable Plan - Discharge Summary New Discharge Prescriptions: New Lisinopril [Zestril] 5 mg PO BID #60 tab Metoprolol Tartrate [Lopressor] 50 mg PO TID #90 tab Rivaroxaban [Xarelto] 20 mg PO AC-SUPPER tab Spironolactone [Aldactone] 25 mg PO DAILY #30 tab Continue metFORMIN HCL [Glucophage] 500 mg PO BID Naproxen Sodium [Aleve] 220 mg PO BID PRN PRN Reason: Pain Lovastatin [Mevacor] 40 mg PO HS Discharge Medication List Lovastatin [Mevacor] 40 mg PO HS 11/21/16 [History] Naproxen Sodium [Aleve] 220 mg PO BID PRN 11/21/16 [History] metFORMIN HCL [Glucophage] 500 mg PO BID 11/21/16 [History] Lisinopril [Zestril] 5 mg PO BID #60 tab 11/24/16 [Rx] Metoprolol Tartrate [Lopressor] 50 mg PO TID #90 tab 11/24/16 [Rx] Rivaroxaban [Xarelto] 20 mg PO AC-SUPPER tab 11/24/16 [Rx] Spironolactone [Aldactone] 25 mg PO DAILY #30 tab 11/24/16 [Rx] Follow up Appointment(s)/Referral(s): Wei Yusuf MD [STAFF PHYSICIAN] - 11/30/16 3:15 pm Sofia White MD [Primary Care Provider] - 12/01/16 10:00 am Ambulatory/Diagnostic Orders: Complete Blood Count w/diff [LAB.AMB] Location: Determined By Patient Patient Instructions/Handouts: *Surgery [facility] - After Heart Catheterization - Electrical Estimator Instructions, Atrial Fibrillation (DC), Left Heart Catheterization (DC) Activity/Diet/Wound Care/Special Instructions: Free month supply of Xarelto filled in [facility] pharmacy Diet cardiac. Activity Limited until follow up.. Discharge Disposition: HOME SELF-CARE
== END 2016-11-24 15:12 | disposition home or self-care (01) | DRG 287 ==
LOC: EC 15:01 → 6SEL 16:56
PROVIDERS: ADMIT Hospitalist; ATTEND Hospitalist
PROC: 4A023N7 Measurement of Cardiac Sampling and Pressure, Left Heart, Percutaneous Approach (ICD-10-PCS; principal; 2016-11-22)
PROC: B2111ZZ Fluoroscopy of Multiple Coronary Arteries using Low Osmolar Contrast (ICD-10-PCS; 2016-11-22)
PROC: B2151ZZ Fluoroscopy of Left Heart using Low Osmolar Contrast (ICD-10-PCS; 2016-11-22)
DX: I48.0 Paroxysmal atrial fibrillation (principal); I42.9 Cardiomyopathy, unspecified; I08.1 Rheumatic disorders of both mitral and tricuspid valves; I10 Essential (primary) hypertension; E78.5 Hyperlipidemia, unspecified; M19.90 Unspecified osteoarthritis, unspecified site; E11.65 Type 2 diabetes mellitus with hyperglycemia; L30.9 Dermatitis, unspecified; Z79.84 Long term (current) use of oral hypoglycemic drugs; Z79.899 Other long term (current) drug therapy; Z91.040 Latex allergy status; Z96.611 Presence of right artificial shoulder joint
CPT/HCPCS: 36415; 71020; 80048; 80053; 82550; 82553; 83036; 83735; 84443; 84484; 85025; 85027; 85610; 85730; 93005; 93306; 93458; 96365; 96366; 96368; 96376; 99291

== ENCOUNTER → 2016-11-29 | Outpatient (CLI) | payer MEDICAID ==
[2016-11-29 16:36] LABS: Basophils # (A) 0.1 k/uL (0-0.2); Basophils % (A) 1 %; CH 31.9; Eosinophils # (A) 0.2 k/uL (0-0.7); Eosinophils % (A) 2 %; HCT 44.9 % (34.0-46.0); HDW 2.43; HGB 14.7 gm/dL (11.4-16.0); Luc % (Auto) 2; Lymphocytes # (A) 1.8 k/uL (1.0-4.8); Lymphocytes % (A) 20 %; MCH 31.7 pg (25.0-35.0); MCHC 32.7 g/dL (31.0-37.0); MCV 97.1 fL (80.0-100.0); Mean Platelet Volume 6.6; Monocytes # (A) 0.5 k/uL (0-1.0); Monocytes % (A) 5 %; Neutrophils # (A) 6.5 k/uL (1.3-7.7); Neutrophils % (A) 70 %; RBC 4.62 m/uL (3.80-5.40); RDW 12.8 % (11.5-15.5); WBC 9.3 k/uL (3.8-10.6); WBC (Perox) 9.33
[2016-11-29 16:37] LABS: Anion Gap 9 mmol/L; Blood Urea Nitrogen 17 mg/dL (7-17); Calcium 9.9 mg/dL (8.4-10.2); Carbon Dioxide 27 mmol/L (22-30); Chloride 105 mmol/L (98-107); Glucose 101 mg/dL (74-99); Non-African American GFR(MDRD) >60 (>60 ml/min/1.73 sqM); Sodium 141 mmol/L (137-145)
== END | disposition home or self-care (01) ==
LOC: LABWHC1 15:55
PROVIDERS: ATTEND Hospitalist
DX: I48.91 Unspecified atrial fibrillation (principal)
CPT/HCPCS: 36415; 80048; 85025

== ENCOUNTER → 2017-03-28 | Outpatient (CLI) | payer MEDICAID ==
--- NOTE | 2017-03-28 09:48 | ECHOF ---
Referral Reason:I42.8 Other cardiomyopathies MEASUREMENTS -------- HEIGHT: 162.6 cm WEIGHT: 90.3 kg BP: 198/80 IVSd: 1.2 cm (0.6 - 1.1) LVIDd: 5.4 cm (3.9 - 5.3) LVPWd: 1.1 cm (0.6 - 1.1) IVSs: 1.3 cm LVIDs: 4.1 cm LVPWs: 1.1 cm LA Diam: 1.3 cm (2.7 - 3.8) LAESV Index (A-L): 67.88 ml/m Ao Diam: 3.4 cm (2.0 - 3.7) AV Cusp: 2.1 cm (1.5 - 2.6) LA Diam: 4.5 cm (2.7 - 3.8) MV EXCURSION: 17.701 mm (> 18.000) MV EF SLOPE: 70 mm/s (70 - 150) EPSS: 1.5 cm MV E Oscar: 1.11 m/s MV DecT: 202 ms MV A Oscar: 0.45 m/s MV E/A Ratio: 2.44 RAP: 5.00 mmHg RVSP: 35.77 mmHg FINDINGS -------- Sinus rhythm. This was a technically adequate study. The left ventricle is mildly dilated. There is borderline concentric left ventricular hypertrophy. There is mild global hypokinesis of LV . Overall left ventricular systolic function is mildly imp aired with, an EF between 45 - 50 %. The right ventricle is normal in size and function. LA is severely dilated >40 ml/m2 The right atrium is normal in size. The aortic valve is trileaflet, and appears structurally normal. No aortic stenosis or regurgitation. The mitral valve leaflets are mildly thickened. Moderate mitral regurgitation is present. Mild tricuspid regurgitation present. There is mild pulmonary hypertension. The right ventricular systolic pressure, as measured by Doppler, is 35.77mmHg. There is no pulmonic regurgitation present. The aortic root size is normal. Normal inferior vena cava with normal inspiratory collapse consistent with estimated right atrial pre ssure of 5 mmHg. There is no pericardial effusion. CONCLUSIONS -------- 1. Sinus rhythm. 2. This was a technically adequate study. 3. The left ventricle is mildly dilated. 4. There is borderline concentric left ventricular hypertrophy. 5. There is mild global hypokinesis of LV . 6. Overall left ventricular systolic function is mildly impaired with, an EF between 45 - 50 %. 7. LA is severely dilated >40 ml/m2 8. The aortic valve is trileaflet, and appears structurally normal. No aortic stenosis or regurgitati on. 9. The mitral valve leaflets are mildly thickened. 10. Moderate mitral regurgitation is present. 11. Mild tricuspid regurgitation present. 12. There is mild pulmonary hypertension. 13. The right ventricular systolic pressure, as measured by Doppler, is 35.77mmHg. 14. There is no pulmonic regurgitation present. 15. The aortic root size is normal. 16. Normal inferior vena cava with normal inspiratory collapse consistent with estimated right atrial pressure of 5 mmHg. 17. There is no pericardial effusion. ENGINEERING SURVEYOR: Lia Munguia RDCS
[2017-03-28 10:36] LABS: ALT 25 U/L (9-52); AST 16 U/L (14-36); Albumin 3.9 g/dL (3.5-5.0); Alkaline Phosphatase 74 U/L (38-126); Anion Gap 8 mmol/L; Blood Urea Nitrogen 17 mg/dL (7-17); Calcium 9.5 mg/dL (8.4-10.2); Carbon Dioxide 30 mmol/L (22-30); Chloride 105 mmol/L (98-107); Glucose 125 mg/dL (74-99); Potassium 4.7 mmol/L (3.5-5.1); Sodium 143 mmol/L (137-145); Total Bilirubin 0.5 mg/dL (0.2-1.3); Total Protein 6.6 g/dL (6.3-8.2)
--- NOTE | 2017-03-31 14:25 | HM ---
HOLTER MONITOR REPORT HOLTER MONITOR: The patient was monitored for 24 hours. Baseline rhythm is a sinus mechanism with normal conduction. The average rate 39 beats per minute, minimum was 31, maximum was 71 beats per minute. Ventricular ectopic activity was not present. Supraventricular ectopic activity was present to form single PACs. No symptoms were reported. CONCLUSION: 1. Sinus bradycardia is baseline rhythm. 2. No ventricular ectopic activity. 3. Rare supraventricular ectopic activity. 4. No symptoms were reported. MMODL / IJN: [id number] /
== END | disposition home or self-care (01) ==
LOC: RADECHMAIN 08:16
PROVIDERS: ATTEND Internal Medicine Interventional Cardiology
DX: I48.1 Persistent atrial fibrillation (principal); I42.8 Other cardiomyopathies; I48.0 Paroxysmal atrial fibrillation
CPT/HCPCS: 36415; 80053; 84443; 93225; 93226; 93306

== ENCOUNTER → 2017-05-19 | Outpatient (CLI) | payer MEDICAID ==
--- NOTE | 2017-05-25 20:19 | HM ---
HOLTER MONITOR REPORT 24 Holter monitor The patient referred by Dr. Yusuf. 24 hour Holter monitor shows sinus mechanism with predominantly sinus bradycardia during the daytime. Heart rate in the 30s and 40s. Maximum heart rate 81 beats per minute. Short runs of nonsustained atrial tachycardia. IMPRESSION: Evidence of sick sinus syndrome with daytime heart rates mostly in the 40s with maximum heart rates in the 80s. MMODL / IJN: [id number] /
== END | disposition home or self-care (01) ==
LOC: RADECHMAIN 11:49
PROVIDERS: ATTEND Internal Medicine Interventional Cardiology
DX: I49.5 Sick sinus syndrome (principal); I47.1 Supraventricular tachycardia; I49.3 Ventricular premature depolarization
CPT/HCPCS: 93225; 93226

== ENCOUNTER → 2017-06-09 | Outpatient (CLI) | payer MEDICAID ==
[2017-06-09 11:00] LABS: Basophils % (A) 1 %; Eosinophils # (A) 0.2 k/uL (0-0.7); Eosinophils % (A) 3 %; HCT 40.7 % (34.0-46.0); HGB 13.1 gm/dL (11.4-16.0); Lymphocytes # (A) 1.5 k/uL (1.0-4.8); Lymphocytes % (A) 25 %; MCH 30.4 pg (25.0-35.0); MCHC 32.2 g/dL (31.0-37.0); MCV 94.5 fL (80.0-100.0); Mean Platelet Volume 7.1; Monocytes # (A) 0.3 k/uL (0-1.0); Monocytes % (A) 5 %; Neutrophils % (A) 66 %; Platelet Count 305 k/uL (150-450); RBC 4.31 m/uL (3.80-5.40); RDW 13.2 % (11.5-15.5)
[2017-06-09 11:05] LABS: Albumin 3.9 g/dL (3.5-5.0); Calcium 9.6 mg/dL (8.4-10.2); Potassium 4.4 mmol/L (3.5-5.1); Total Bilirubin 0.7 mg/dL (0.2-1.3); Total Protein 6.5 g/dL (6.3-8.2)
[2017-06-09 17:19] LABS: Hemoglobin A1C 5.4 % (4.0-6.0)
== END | disposition home or self-care (01) ==
LOC: LABWHC1 10:03
PROVIDERS: ATTEND Family Medicine
DX: E11.9 Type 2 diabetes mellitus without complications (principal); E03.9 Hypothyroidism, unspecified
CPT/HCPCS: 36415; 80053; 80061; 83036; 84443; 84480; 85025

== ENCOUNTER → 2017-12-08 | Outpatient (CLI) | payer MEDICAID ==
[2017-12-08 12:51] LABS: Basophils % (A) 1 %; Eosinophils # (A) 0.2 k/uL (0-0.7); Eosinophils % (A) 3 %; HCT 35.8 % (34.0-46.0); HGB 12.1 gm/dL (11.4-16.0); Lymphocytes # (A) 1.5 k/uL (1.0-4.8); Lymphocytes % (A) 26 %; MCH 31.9 pg (25.0-35.0); MCHC 33.7 g/dL (31.0-37.0); MCV 94.8 fL (80.0-100.0); Mean Platelet Volume 6.6; Monocytes # (A) 0.3 k/uL (0-1.0); Monocytes % (A) 5 %; Neutrophils # (A) 3.7 k/uL (1.3-7.7); Neutrophils % (A) 65 %; Platelet Count 285 k/uL (150-450); RBC 3.78 m/uL (3.80-5.40); RDW 13.2 % (11.5-15.5); WBC 5.7 k/uL (3.8-10.6)
[2017-12-08 13:10] LABS: ALT 23 U/L (9-52); AST 17 U/L (14-36); Albumin 3.7 g/dL (3.5-5.0); Alkaline Phosphatase 67 U/L (38-126); Anion Gap 8 mmol/L; Blood Urea Nitrogen 18 mg/dL (7-17); Calcium 9.4 mg/dL (8.4-10.2); Carbon Dioxide 25 mmol/L (22-30); Chloride 109 mmol/L (98-107); Cholesterol 135 mg/dL (<200); Glucose 84 mg/dL (74-99); HDL Cholesterol 33 mg/dL (40-60); LDL Cholesterol,Calculated 84 mg/dL (0-99); Potassium 4.8 mmol/L (3.5-5.1); Sodium 142 mmol/L (137-145); Total Bilirubin 0.7 mg/dL (0.2-1.3); Total Protein 6.3 g/dL (6.3-8.2); Triglycerides 92 mg/dL (<150)
[2017-12-08 22:41] LABS: Hemoglobin A1C 5.4 % (4.0-6.0)
== END | disposition home or self-care (01) ==
LOC: LABWHC1 11:08
PROVIDERS: ATTEND Family Medicine
DX: E11.9 Type 2 diabetes mellitus without complications (principal); E03.9 Hypothyroidism, unspecified
CPT/HCPCS: 36415; 80053; 80061; 83036; 84443; 85025

== ENCOUNTER → 2018-03-09 | Outpatient (CLI) | payer MEDICAID ==
--- NOTE | 2018-03-09 15:36 | XR ---
EXAMINATION TYPE: XR chest 2V DATE OF EXAM: 03/09/2018 COMPARISON: 11/21/2016 TECHNIQUE: PA and lateral views submitted. HISTORY: Preop FINDINGS: The lungs are clear and there is no pneumothorax, pleural effusion, or focal pneumonia. Postsurgica l change right shoulder. No overt failure. Hypertrophic and degenerative change spine. IMPRESSION: 1. No acute process.
== END | disposition home or self-care (01) ==
LOC: RADXRMAIN 14:57
PROVIDERS: ATTEND Family Medicine
DX: Z01.818 Encounter for other preprocedural examination (principal)
CPT/HCPCS: 71046

== ENCOUNTER → 2018-03-19 | Outpatient (CLI) | payer MEDICAID | END | disposition home or self-care (01) | LOC: LABPAT 11:48 | PROVIDERS: ATTEND Orthopaedic Surgery | DX: Z01.812 Encounter for preprocedural laboratory examination (principal); M16.12 Unilateral primary osteoarthritis, left hip | CPT/HCPCS: 87070 ==

== ENCOUNTER → 2018-03-23 | Outpatient (CLI) | payer MEDICAID ==
[2018-03-23 13:32] LABS: Basophils # (A) 0.1 k/uL (0-0.2); Basophils % (A) 1 %; Eosinophils # (A) 0.2 k/uL (0-0.7); Eosinophils % (A) 2 %; HCT 42.8 % (34.0-46.0); HGB 13.9 gm/dL (11.4-16.0); Lymphocytes # (A) 1.6 k/uL (1.0-4.8); Lymphocytes % (A) 20 %; MCH 30.4 pg (25.0-35.0); MCHC 32.4 g/dL (31.0-37.0); MCV 93.9 fL (80.0-100.0); Mean Platelet Volume 6.9; Monocytes # (A) 0.4 k/uL (0-1.0); Monocytes % (A) 4 %; Neutrophils # (A) 5.9 k/uL (1.3-7.7); Neutrophils % (A) 72 %; Platelet Count 332 k/uL (150-450); RBC 4.56 m/uL (3.80-5.40); RDW 12.7 % (11.5-15.5); WBC 8.2 k/uL (3.8-10.6)
[2018-03-23 13:42] LABS: Partial Thromboplastin Time 25.8 sec (22.0-30.0); Prothrombin Time 10.3 sec (9.0-12.0)
[2018-03-23 13:47] LABS: Potassium 4.4 mmol/L (3.5-5.1)
== END | disposition home or self-care (01) ==
LOC: LABPAT 12:45
PROVIDERS: ATTEND Orthopaedic Surgery
DX: Z01.812 Encounter for preprocedural laboratory examination (principal); M16.12 Unilateral primary osteoarthritis, left hip
CPT/HCPCS: 36415; 80051; 85025; 85610; 85730

== ENCOUNTER 2018-03-27 06:12 | Inpatient (IN) | payer MEDICAID ==
--- NOTE | 2018-03-26 09:27 | HP ---
HISTORY AND PHYSICAL CHIEF COMPLAINT: Left hip pain. 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 She is having difficult time with weightbearing activities. She is limping. She has been taking anti-inflammatories intermittently. PAST MEDICAL HISTORY: Significant for type 2 diabetes, atrial fibrillation, hypertension, hypothyroidism. PAST SURGICAL HISTORY: Significant for right shoulder hemiarthroplasty. CURRENT MEDICATIONS: 1. Levothyroxine. 2. Lisinopril. 3. Lovastatin. 4. Metformin. 5. Metoprolol. 6. Spironolactone. 7. Xarelto. ALLERGIES: She denies drug allergies. FAMILY HISTORY: Significant for diabetes. SOCIAL HISTORY: Negative for current tobacco or alcohol use. REVIEW OF SYSTEMS: Sixteen-point review of systems otherwise reviewed and is noncontributory. PHYSICAL EXAMINATION: On examination, the patient is approximately 5 feet 4 inches, 195 pounds of endomorphic habitus. HEENT exam is nonfocal. Neck is supple. She has passive motion left hip, flexion 65 degrees, external rotation with the hip flexed 30 degrees, internal rotation -10 degrees with pain. Clinically, she has 1.5 cm shortening of the left lower extremity compared to the right. Her distal neurovascular exam appears to be intact in the left lower extremity. AP of the pelvis x-ray obtained in the office shows severe left hip osteoarthrosis with [id number] changes. IMPRESSION: 1. Left hip severe osteoarthrosis-symptomatic. 2. Atrial fibrillation on anticoagulation. RECOMMENDATIONS: I talked to the patient at length regarding her condition and treatment options. At this point, she is quite symptomatic and opts to proceed with surgery. We will plan to proceed with left total hip arthroplasty. We will reinstitute her Xarelto postoperatively. Risks and benefits were discussed at length in layman's terms. The patient underwent preoperative cardiac evaluation by Dr. Yusuf. ROCKY / SIRENA: [id number] /
[~2018-03-27 06:12] MED LIST: ACETAMINOPHEN TAB 500 MG TAB PO ONE; LIDOCAINE 1% 20 ML VIAL (10MG/ML) FOR IV START INTRADERMA PRN; MELOXICAM 7.5 MG TAB PO ONE; MIDAZOLAM (PF) 2 MG/2 ML VIAL IV PRN; TRANEXAMIC ACID 1,000 MG in SODIUM CHLORIDE 0.9% 50 ML IVPB ONE; ceFAZolin IN SWFI 2 GM/20 ML SYRINGE IVP ONE
[2018-03-27] MEDS: LACTATED RINGERS 1,000 ML IV SCH ×2 (06:45→16:15)
[2018-03-27] MEDS ORDERED: DEXAMETHASONE SOD PHOSPHATE 10 MG/ML 1 ML VIAL IV ONE (06:52)
[2018-03-27] MEDS ORDERED: ONDANSETRON 4 MG/2 ML VIAL IVP ONE (06:52)
[2018-03-27] MEDS ORDERED: MIDAZOLAM 2 MG/2 ML VIAL IVP ONE (06:53)
[2018-03-27 07:04] LABS: Glucose,Whole Blood 137 mg/dL (75-99)
[2018-03-27] MEDS ORDERED: PROPOFOL 10 MG/ML 20 ML VIAL IV ONE (07:58)
[2018-03-27] MEDS ORDERED: MIDAZOLAM 2 MG/2 ML VIAL ONE (07:58)
[2018-03-27] MEDS ORDERED: SODIUM CHLORIDE 0.9% 100 ML BAG ONE (07:58)
[2018-03-27] MEDS ORDERED: LIDOCAINE 1% INJ 10MG/ML (20 ML MDV) ONE (07:58)
[2018-03-27] MEDS ORDERED: HEPARIN SODIUM,PORCINE 10,000 UNIT/ML 1 ML VIAL ONE (07:58)
[2018-03-27] MEDS ORDERED: TRANEXAMIC ACID 1,000 MG/10 ML VIAL ONE (07:58)
[2018-03-27] MEDS ORDERED: METOPROLOL TARTRATE 5 MG/5 ML VIAL IVP ONE ×2 (07:58→11:56)
[2018-03-27] MEDS ORDERED: SODIUM CHLORIDE 0.9% IRRIG 1,000 ML BTL IRRIGATION ONE (07:58)
[2018-03-27] MEDS ORDERED: PHENYLEPHRINE-0.9% NACL SYG 1 MG/10 ML SYRINGE ONE (07:58)
[2018-03-27] MEDS ORDERED: ceFAZolin 3,000 MG in SODIUM CHLORIDE 0.9% IRRIGATIO 3,000 ML IRRIGATION ONE (08:40)
[2018-03-27] MEDS ORDERED: LACTATED RINGERS 1,000 ML IV ONE (08:53)
[2018-03-27] MEDS ORDERED: MAGNESIUM HYDROXIDE 2,400 MG/10 ML CUP PO PRN (09:45)
[2018-03-27] MEDS ORDERED: ONDANSETRON 4 MG/2 ML VIAL IVP PRN (09:45)
[2018-03-27] MEDS ORDERED: HYDROcodone/APAP 5-325MG 1 EACH TAB PO PRN (09:45)
[2018-03-27] MEDS ORDERED: NALOXONE 0.4 MG/ML 1 ML VIAL IV PRN (09:45)
[2018-03-27] MEDS ORDERED: HYDROmorphone 0.5 MG/0.5 ML SYRINGE IVP PRN ×2 (09:45)
--- NOTE | 2018-03-27 10:13 | P.OP ---
Date of Procedure: 03/27/18 Preoperative Diagnosis: Severe left hip osteoarthrosis Postoperative Diagnosis: Same Procedure(s) Performed: Left total hip arthroplastypress-fitanterior approach Implants: Depuy Corail size 12 standard press-fit femoral stem, 32 mm +5 ceramic femoral head, 52 mm Carmen acetabular shell with neutral polyethylene liner. Anesthesia: spinal Surgeon: Tej Somers Director Records Management #1: Thomas Pepe Estimated Blood Loss (ml): 200 Pathology: other (Femoral head) Condition: stable Disposition: PACU Indications for Procedure: The patient is a 63-year-old female who presents with progressive left hip pain secondary osteoarthrosis despite conservative measures. A discussion of the risks and benefits of operative intervention versus continued conservative measures was made with patient. She opted to proceed with surgery. Operative risks to include infection, neurovascular injury, development of blood clots, possible fracture, possible leg length discrepancy, possible instability, and possible need for subsequent procedures was discussed. Informed consent was obtained. Operative Findings: As below Description of Procedure: The patient was brought to the operating room, and after induction of spinal anesthesia was placed supine on the Sachi table. Positioning was checked with fluoroscopy. The left hip was then prepped and draped in a normal fashion. A 12 cm incision was then made starting 2 fingerbreadths distal and 3 finger breaths posterior to the ASIS in line with the proximal femur. The skin was incised sharply. Subcutaneous tissues were divided sharply. Electrocautery was used for hemostasis. The fascia was split in line with skin incision. The interval between the sartorius and tensor fascia demetrio was then bluntly developed. The posterior fascia was opened with electrocautery. The lateral circumflex vessels were identified and cauterized prior to sectioning. A retractor was placed along the superior femoral neck as well as the anterior acetabular rim. A wide capsulotomy was performed. The neck cut was then made at a 45 angle to the shaft approximately 1 1/2 cm above the level of the lesser trochanter. The head was extracted. Attention was then paid towards preparing the acetabular. Anterior and posterior retractors were placed. The remaining capsular labral tissue sharply debrided clearly defining the acetabular margins. I began reaming with a 49 mm reamer taking care to initially medialize then reaming at 45 of abduction and 20 of anteversion. Sequential reaming is performed up to 51 mm. A trial 52 mm acetabular shell was inserted in the same orientation and was fully seated. There was good rim fit and stability. Positioning was checked with fluoroscopy. The final to mm acetabular shell was inserted again at 45 of abduction and 20 of anteversion. This was fully seated. There was good rim fit and stability. Again fluoroscopy was used to check the adequacy of placement. A neutral polyethylene liner was gently impacted. Care was taken to avoid any soft tissue interposition. Pulsatile lavage was utilized. Attention was then paid towards preparing the proximal femur. The central region was cleared of soft tissue. A canal finder was used to find the femoral canal. Sequential broaching was performed up to size 12 taking care to lateralize proximally. A calcar mill was used to fashion the medial calcar. There was good rotational stability. A standard neck along with a 32 mm +5 head was placed. The hip was gently reduced. Fluoroscopy was used to check the adequacy of positioning along with leg lengths. I felt both were good. The hip was gently dislocated. The trial components were removed. The final size 12 collared standard press- fit femoral stem was inserted parallel to the posterior cortex. This was fully seated and there was good rotational stability. A 32 mm +5 ceramic head was placed. This was gently impacted. The hip was then gently reduced. Final fluoroscopic view showed adequate placement implant along with cheondoism of leg length. Stability was checked with 80 of external rotation and 60 of extension of the right hip. The wound was irrigated with sterile lavage. The fascia was closed with running 0 Vicryl suture. There was minimal drainage therefore a deep drain was not placed. The second dose of IV TXA was given. The subcutaneous tissues were reapproximated interrupted 2-0 Vicryl sutures. The skin was reapproximated with 3-0 subcuticular strata fix suture. A silver impregnated dressing was placed. The patient was then awoken from sedation and transferred to recovery room in good condition. Blood loss was estimated at 200 mL. No complications were incurred. Sponge and needle counts were correct at the end of the case. Shamar FORTUNE assisted during the major components is case to include exposure, bone resection, implantation, and closure.
--- NOTE | 2018-03-27 10:21 | XR ---
Limited left hip HISTORY: Left hip arthroplasty Single intraoperative C-arm image documents the procedure.
--- NOTE | 2018-03-27 10:22 | FL ---
Fluoroscopy HISTORY: Left hip arthroplasty 38 seconds fluoroscopy time supplied to the referring clinician. 1 intraoperative C-arm images docum ent the procedure. See dictated report from orthopedic surgery.
[2018-03-27 10:28] LABS: Glucose,Whole Blood 115 mg/dL (75-99)
--- NOTE | 2018-03-27 12:00 | XR ---
Limited left hip HISTORY: Postop Single frontal view of the left hip Patient is status post left hip arthroplasty. Lucency present in the soft tissues compatible postop s shen. There is anatomic alignment. IMPRESSION: Orthopedic follow-up.
--- NOTE | 2018-03-27 12:31 | P.CRDCN ---
History of Present Illness Consult date: 03/27/18 Requesting physician: Eloy Somers Consult reason: atrial fibrillation Chief complaint: Status post left total hip arthroplasty History of present illness: This is a pleasant 63-year-old female who follows regularly with Dr. Yusuf in the office. She has a known history of hyperlipidemia, hypertension, diabetes, family history of premature coronary artery disease, paroxysmal H or fibrillation with prior cardioversion. She came to the hospital underwent left total hip arthroplasty, patient was noted to be in atrial fibrillation, postoperatively her heart rate was noted to be in the 120 to 1:30 range and for this reason a cardiology consultation was requested. Patient did take her home dose of metoprolol this morning and she was given a one-time dose of IV metoprolol postoperatively. At the time of my examination her heart rate is in the 120s to 140s range, blood pressure 1:30 to 140 systolic. Overall the patient feels well, no complaints. Blood pressure 122/70, 96% on room air. The patient did have labs drawn on March 23, CBC was normal, sodium 141, potassium 4.4. We will order some repeat labs today including a magnesium level. We will start the patient on IV amiodarone per protocol. Xarelto has also been resumed, and patient will take a dose at her scheduled time this evening. Past Medical History Past Medical History: Atrial Fibrillation, Diabetes Mellitus, Hyperlipidemia Additional Past Medical History / Comment(s): BRONCHITIS, ECZEMA History of Any Multi-Drug Resistant Organisms: None Reported Past Surgical History: Joint Replacement Additional Past Surgical History / Comment(s): rt shoulder HEMIARTHROPLASTY, COLONOSCOPY Past Anesthesia/Blood Transfusion Reactions: No Reported Reaction Smoking Status: Never smoker - Past Family History Mother Family Medical History: Cancer Additional Family Medical History / Comment(s): STOMACH CANCER Father History Unknown: Yes Additional Family Medical History / Comment(s): AT AGE 87 NOT SURE OF THE CAUSE Sister(s) Family Medical History: Cancer Additional Family Medical History / Comment(s): COLON CA Medications and Allergies Home Medications Medication Instructions Recorded Confirmed Type Lovastatin [Mevacor] 40 mg PO HS 11/21/16 03/27/18 History metFORMIN HCL [Glucophage] 500 mg PO BID 11/21/16 03/22/18 History Rivaroxaban [Xarelto] 20 mg PO AC-SUPPER tab 11/24/16 03/27/18 Rx Spironolactone [Aldactone] 25 mg PO DAILY #30 tab 11/24/16 03/27/18 Rx Metoprolol Tartrate [Lopressor] 50 mg PO BID #90 tab 12/20/16 03/22/18 Rx Lisinopril [Zestril] 10 mg PO BID 02/03/17 03/22/18 History Levothyroxine Sodium [Synthroid] 25 mcg PO DAILY 03/22/18 03/22/18 History Allergies Allergy/AdvReac Type Severity Reaction Status Date / Time adhesive tape Allergy Rash/Hives Verified 03/27/18 06:25 latex Allergy Rash/Hives Verified 03/27/18 06:25 Physical Exam Vitals: Vital Signs Temp Pulse Pulse Resp BP BP Pulse Ox 03/27/18 12:15 123 H 16 122/74 96 03/27/18 12:00 133 H 16 122/79 99 03/27/18 11:45 135 H 16 138/57 96 03/27/18 11:23 126 H 16 122/62 97 03/27/18 11:12 136 H 16 119/74 96 03/27/18 10:55 137 H 16 106/82 94 L 03/27/18 10:37 115 H 16 123/82 97 03/27/18 10:19 125 H 16 117/55 94 L 03/27/18 10:04 98.2 F 128 H 16 114/57 98 03/27/18 06:45 97.1 F L 84 17 150/79 97 Intake and Output 03/26/18 03/27/18 03/27/18 22:59 06:59 14:59 Intake Total 400 1201 Output Total 200 Balance 400 1001 Intake: IV 400 1201 Output: Estimated Blood Loss 200 PHYSICAL EXAMINATION: GENERAL: 63-year-old female in no acute distress at the time of my examination HEENT: Head is atraumatic, normocephalic. Pupils equal, round. Sclera anicteric. Conjunctiva are clear. Mucous membranes of the mouth are moist. Neck is supple. There is no elevated jugular venous pressure. No carotid bruit is heard. HEART EXAMINATION: Heart S1 and S2 irregularly irregular CHEST EXAMINATION: Lungs are clear to auscultation and precussion. No chest wall tenderness is noted on palpation or with deep breathing. ABDOMEN: Soft, nontender. Bowel sounds are heard. No organomegaly noted. EXTREMITIES: 2+ peripheral pulses with no evidence of peripheral edema and no calf tenderness noted. NEUROLOGIC patient is awake, alert and oriented X3. . Results Current Medications Generic Name Dose Route Start Last Admin Trade Name Freq PRN Reason Stop Dose Admin Hydrocodone Bitart/Acetaminophen 1 each 03/27/18 09:45 [place] 5-325 PO Q6HR PRN Pain Scale 1 to 5 Hydrocodone Bitart/Acetaminophen 2 each 03/27/18 09:45 [place] 5-325 PO Q6HR PRN Pain Scale 6 to 10 Cefazolin Sodium 2 gm 03/27/18 15:00 Kefzol IVP 03/27/18 23:01 Q8H CARMELITA Hydromorphone HCl 0.25 mg 03/27/18 09:45 Dilaudid IVP Q3HR PRN Pain Scale 1 to 3 Hydromorphone HCl 0.5 mg 03/27/18 09:45 Dilaudid IVP Q3HR PRN Pain Scale 4 to 6 Lactated Ringer's 1,000 mls @ 50 mls/hr 03/26/18 09:00 03/27/18 06:45 Lactated Ringers IV 1,000 mls .Q20H CARMELITA Administration Lidocaine HCl 0.1 ml 03/26/18 08:52 .Xylocaine 1% Inj (10mg/Ml) For Iv Start INTRADERMA PER PROTOCOL PRN IV Start Magnesium Hydroxide 2,400 mg 03/27/18 09:45 Milk Of Magnesia PO DAILY PRN Constipation Naloxone HCl 0.2 mg 03/27/18 09:45 Narcan IV Q2M PRN Opioid Reversal Ondansetron HCl 4 mg 03/27/18 09:45 Zofran IVP DAILY PRN Nausea And Vomiting Rivaroxaban 20 mg 03/28/18 17:30 Xarelto PO W/SUPPER CARMELITA Senna/Docusate Sodium 2 each 03/27/18 21:00 Senokot-S PO HS CARMELITA Tramadol HCl 50 mg 03/27/18 13:00 Ultram PO QID CARMELITA Intake and Output 03/26/18 03/27/18 03/27/18 22:59 06:59 14:59 Intake Total 400 1201 Output Total 200 Balance 400 1001 Intake: IV 400 1201 Output: Estimated Blood Loss 200 EKG Interpretations (text) EKG shares atrial fibrillation with a rapid ventricular response Assessment and Plan Plan: Assessment and plan #1 Atrial fibrillation with rapid ventricular response, paroxysmal, patient is on Xarelto at home for anticoagulation #2 hypertension #3 hyperlipidemia #4 diabetes #5 status post left total hip arthroplasty Plan We will start the patient on IV amiodarone per protocol, Xarelto has also been resumed. Order lytes BUN and creatinine as well as a magnesium level and Tsh. DNP note has been reviewed, I agree with a documented findings and plan of care. Patient was seen and examined.
[2018-03-27] MEDS ORDERED: DEXTROSE 5% IN WATER 100 ML with AMIODARONE 150 MG IV ONE (12:50)
[2018-03-27] MEDS: AMIODARONE 450 MG in DEXTROSE 5% IN WATER 250 ML IV SCH ×6 (12:51→22:44)
[2018-03-27] MEDS: fentaNYL (PF) 50 MCG/ML 2 ML AMP IV PRN ×2 (13:09→13:21)
[2018-03-27 13:35] LABS: Calcium 9.3 mg/dL (8.4-10.2); Potassium 4.8 mmol/L (3.5-5.1)
[2018-03-27] MEDS: traMADol 50 MG TAB PO SCH ×3 (16:47→22:44)
[2018-03-27 16:52] LABS: Glucose,Whole Blood 150 mg/dL (75-99)
[2018-03-27 17:01] VITALS: BMI 31.3
[2018-03-27] MEDS: ceFAZolin IN SWFI 2 GM/20 ML SYRINGE IVP SCH (17:39)
--- NOTE | 2018-03-27 17:47 | P.CONS ---
History of Present Illness - Reason for Consult Consult date: 03/27/18 Medical management of A. fib and hypertension Requesting physician: Tej Somers - Chief Complaint Medical management of A. fib and hypertension - History of Present Illness The patient is a 63-year-old female with a past history of paroxysmal A. fib, type 2 diabetes, essential hypertension, dyslipidemia, and severe left hip osteoarthritis. Today the patient is currently postop after undergoing a total left hip arthroplasty secondary to severe left hip osteoarthritis by the primary orthopedic service Dr. Somers. Postoperatively the patient is feeling fine, she denies any palpitations lightheadedness dizziness, denies any syncope. She denies chest pain or shortness of breath. Patient reports compliance with her anticoagulation Xarelto reports that it was discontinued 2 days prior to surgery. Postoperatively the patient was noted to be in A. fib with RVR with heart rate in the 120 to 40s, she was given IV metoprolol and transferred to the telemetry unit. Review of Systems Pertinent positive as per HPI all other review systems are otherwise negative Past Medical History Past Medical History: Atrial Fibrillation, Diabetes Mellitus, Hyperlipidemia Additional Past Medical History / Comment(s): BRONCHITIS, ECZEMA History of Any Multi-Drug Resistant Organisms: None Reported Past Surgical History: Joint Replacement Additional Past Surgical History / Comment(s): rt shoulder HEMIARTHROPLASTY, COLONOSCOPY Past Anesthesia/Blood Transfusion Reactions: No Reported Reaction Past Psychological History: No Psychological Hx Reported Smoking Status: Never smoker Past Alcohol Use History: None Reported Past Drug Use History: None Reported - Past Family History Mother Family Medical History: Cancer Additional Family Medical History / Comment(s): STOMACH CANCER Father History Unknown: Yes Additional Family Medical History / Comment(s): AT AGE 87 NOT SURE OF THE CAUSE Sister(s) Family Medical History: Cancer Additional Family Medical History / Comment(s): COLON CA Medications and Allergies Home Medications Medication Instructions Recorded Confirmed Type Lovastatin [Mevacor] 40 mg PO HS 11/21/16 03/27/18 History metFORMIN HCL [Glucophage] 500 mg PO BID 11/21/16 03/27/18 History Rivaroxaban [Xarelto] 20 mg PO AC-SUPPER tab 11/24/16 03/27/18 Rx Spironolactone [Aldactone] 25 mg PO DAILY #30 tab 10/05/17 02/05/19 Rx Metoprolol Tartrate [Lopressor] 50 mg PO BID #90 tab 12/20/16 03/27/18 Rx Lisinopril [Zestril] 10 mg PO BID 02/03/17 03/27/18 History Levothyroxine Sodium [Synthroid] 25 mcg PO DAILY 03/22/18 03/27/18 History Allergies Allergy/AdvReac Type Severity Reaction Status Date / Time adhesive tape Allergy Rash/Hives Verified 03/27/18 14:26 latex Allergy Rash/Hives Verified 03/27/18 14:26 Physical Exam Vitals: Vital Signs Temp Pulse Pulse Resp BP BP Pulse Ox 03/27/18 16:48 115/76 03/27/18 16:29 133 H 03/27/18 16:27 97.6 F 133 H 20 134/93 96 03/27/18 14:30 137 H 16 98/60 95 03/27/18 13:30 133 H 16 127/90 96 03/27/18 13:00 118 H 16 139/80 95 03/27/18 12:30 140 H 16 117/81 96 03/27/18 12:15 123 H 16 122/74 96 03/27/18 12:00 133 H 16 122/79 99 03/27/18 11:45 135 H 16 138/57 96 03/27/18 11:23 126 H 16 122/62 97 03/27/18 11:12 136 H 16 119/74 96 03/27/18 10:55 137 H 16 106/82 94 L 03/27/18 10:37 115 H 16 123/82 97 03/27/18 10:19 125 H 16 117/55 94 L 03/27/18 10:04 98.2 F 128 H 16 114/57 98 03/27/18 06:45 97.1 F L 84 17 150/79 97 Intake and Output 03/27/18 03/27/18 03/27/18 06:59 14:59 22:59 Intake Total 400 1201 379 Output Total 200 800 Balance 400 1001 -421 Intake: IV 400 1201 379 Output: Urine 800 Estimated Blood Loss 200 Other: Weight 87.1 kg Constitutional: No acute distress, conversant, pleasant Eyes: Anicteric sclerae, moist conjunctiva, no lid-lag, PERRLA ENMT: NC/AT,Oropharynx clear, no erythema, exudates Neck:Supple, FROM, no masses, or JVD, No carotid bruits; No thyromegaly Lungs: Clear to auscultation, Clear to percussion, Normal respiratory effort, no accessory muscle use Cardiovascular: Irregularly irregular, No murmurs, gallops, or rubs no peripheral edema Abdominal: Soft Nontender, nom distended, no guarding, no rebound or rigidity, Normoactive bowel sounds No hepatomegaly, No splenomegaly, No palpable mass No abdominal wall hernia noted Skin: Normal temperature, tone, texture, turgor, No induration No subcutaneous nodules, No rash, lesions, No ulcers Extremities:No digital cyanosis No clubbing, Pedal pulses intact and symmetrical Radial pulses intact and symmetrical Normal gait and station, No calf tenderness Psychiatric: Alert and oriented to person, place and time, Appropriate affect Intact judgement Neuro: Muscles Strength 5/5 in all 4 extremities, Sensation to light touch grossly present throughout, Cranial nerves II-XII grossly intact. No focal sensory deficits Results CBC & Chem 7: 03/27/18 12:35 Labs: Abnormal Lab Results - Last 24 Hours (Table) 03/27/18 03/27/18 03/27/18 Range/Units 07:02 10:25 12:35 Chloride 110 H (98-107) mmol/L BUN 18 H (7-17) mg/dL Glucose 138 H (74-99) mg/dL POC Glucose (mg/dL) 137 H 115 H (75-99) mg/dL 03/27/18 Range/Units 16:26 Chloride (98-107) mmol/L BUN (7-17) mg/dL Glucose (74-99) mg/dL POC Glucose (mg/dL) 150 H (75-99) mg/dL Assessment and Plan (1) Atrial fibrillation with RVR Current Visit: Yes Status: Acute Code(s): I48.91 - UNSPECIFIED ATRIAL FIBRILLATION SNOMED Code(s): 503734517720373 (2) Essential hypertension Current Visit: Yes Status: Acute Code(s): I10 - ESSENTIAL (PRIMARY) HYPERTENSION SNOMED Code(s): 84851614 (3) Type 2 diabetes mellitus Current Visit: Yes Status: Acute Code(s): E11.9 - TYPE 2 DIABETES MELLITUS WITHOUT COMPLICATIONS SNOMED Code(s): 24977105 (4) Dyslipidemia Current Visit: Yes Status: Acute Code(s): E78.5 - HYPERLIPIDEMIA, UNSPECIFIED SNOMED Code(s): 188595545 Plan: The patient is admitted for elective left hip arthroplasty secondary to severe left hip osteoarthritis. She is a history of paroxysmal A. fib and went into A. fib with RVR post surgery. Her blood pressure continues to be normotensive. The patient was seen by cardiology and started on amiodarone drip. We'll plan to resume the patient's anticoagulation with Xarelto this evening. The patient's Synthroid, lisinopril, lovastatin, metoprolol and Aldactone were also resumed. She is currently receiving perioperative Antibiotics with cefazolini We'll continue to follow her clinical course Time with Patient: Less than 30
[2018-03-27] MEDS ORDERED: RIVAROXABAN 20 MG TAB PO SCH (18:00)
[2018-03-27] MEDS: LISINOPRIL 10 MG TAB PO SCH (19:54)
[2018-03-27] MEDS: METOPROLOL TARTRATE 50 MG TAB PO SCH (19:54)
[2018-03-27] MEDS ORDERED: SENNOSIDES-DOCUSATE SODIUM 1 EACH TAB PO SCH (21:00)
[2018-03-27] MEDS ORDERED: ATORVASTATIN 10 MG TAB PO SCH (21:00)
[2018-03-27 21:10] LABS: Glucose,Whole Blood 185 mg/dL (75-99)
[2018-03-28] MEDS: ceFAZolin IN SWFI 2 GM/20 ML SYRINGE IVP SCH (02:39)
[2018-03-28] MEDS: AMIODARONE 450 MG in DEXTROSE 5% IN WATER 250 ML IV SCH ×2 (05:19)
[2018-03-28] MEDS: HYDROcodone/APAP 5-325MG 1 EACH TAB PO PRN ×2 (05:25→10:58)
[2018-03-28 06:00] LABS: Basophils % (A) 0 %; Eosinophils # (A) 0.1 k/uL (0-0.7); Eosinophils % (A) 1 %; HCT 36.2 % (34.0-46.0); Lymphocytes % (A) 19 %; MCH 30.8 pg (25.0-35.0); MCV 93.3 fL (80.0-100.0); Mean Platelet Volume 6.3; Monocytes # (A) 0.7 k/uL (0-1.0); Monocytes % (A) 7 %; Neutrophils # (A) 7.6 k/uL (1.3-7.7); Neutrophils % (A) 73 %; Platelet Count 283 k/uL (150-450); RBC 3.88 m/uL (3.80-5.40); RDW 12.5 % (11.5-15.5); WBC 10.5 k/uL (3.8-10.6)
[2018-03-28 06:12] LABS: Glucose,Whole Blood 117 mg/dL (75-99)
[2018-03-28] MEDS ORDERED: LEVOTHYROXINE 25 MCG TAB PO SCH (06:30)
[2018-03-28 07:48] VITALS: RESP 18
[2018-03-28] MEDS: traMADol 50 MG TAB PO SCH ×2 (08:40→12:10)
[2018-03-28] MEDS: LISINOPRIL 10 MG TAB PO SCH (08:40)
[2018-03-28] MEDS: METOPROLOL TARTRATE 50 MG TAB PO SCH (08:40)
[2018-03-28] MEDS: LACTATED RINGERS 1,000 ML IV SCH (08:40)
[2018-03-28] MEDS ORDERED: AMIODARONE 200 MG TAB PO SCH (09:00)
[2018-03-28] MEDS ORDERED: SPIRONOLACTONE 25 MG TAB PO SCH (09:00)
--- NOTE | 2018-03-28 09:22 | PN ---
PROGRESS NOTE Mrs. Vazquez is a 63-year-old female with known history of atrial fibrillation has been in sinus mechanism, underwent total hip arthroplasty yesterday and was noted to be in atrial fibrillation with rapid ventricular response. She was asymptomatic in regard to the arrhythmia. She is feeling well this morning. She denies any symptoms of chest pain. No dizziness. No palpitation. She denies any nausea. She continues to be on the IV amiodarone at this point. In addition to that, she is on lisinopril 10 mg twice a day, metoprolol tartrate 50 mg twice a day, Xarelto 20 mg daily, Aldactone 25 mg daily. PHYSICAL EXAMINATION: Blood pressure 133/70 with the heart rate in 90s. LUNGS: Clear. HEART: Irregular, irregular, S1, S2. No S3. No rub. ABDOMEN: Soft, nontender. EXTREMITIES: No edema. IMPRESSION: 1. Status post total hip arthroplasty. 2. Atrial fibrillation, paroxysmal. Patient is back in atrial fibrillation. 3. Diabetes. 4. Hypertension. 5. Hyperlipidemia. RECOMMENDATION: I will switch her to oral amiodarone. Patient should be able to be discharged home today and followed as an outpatient. If she remains in atrial fibrillation, then cardioversion may be required. MMODL / IJN: [id number] /
[2018-03-28 11:02] VITALS: BP 104/48; PULSE 86; TEMP 97.8
[2018-03-28 12:03] LABS: Glucose,Whole Blood 149 mg/dL (75-99)
--- NOTE | 2018-03-28 12:42 | P.PN ---
Subjective Progress Note Date: 03/28/18 Principal diagnosis: Status post left total hip arthroplasty Patient evaluated bedside, she is him present. She is resting comfortably. She denies any fevers or chills. Objective - Vital Signs Vital signs: Vital Signs Temp 97.8 F 03/28/18 11:01 Pulse 86 03/28/18 12:00 Resp 18 03/28/18 11:01 BP 104/48 03/28/18 11:01 Pulse Ox 97 03/28/18 11:01 Intake & Output 03/27/18 03/28/18 03/28/18 18:59 06:59 18:59 Intake Total 1802 172.931 240 Output Total 1000 1450 Balance 802 -1277.069 240 Weight 87.1 kg 95.5 kg Intake: IV 1580 Intake, IV Titration 52.931 Amount Amiodarone 450 mg In 52.931 Dextrose 5% in Water 250 ml @ 1 MG/MIN 34.53 mls/ hr IV .[id number] [facility] Rx#: [id number] Oral 222 120 240 Output: Urine 800 1450 Estimated Blood Loss 200 Other: Voiding Method Toilet # Voids 2 - Exam Left lower extremity: Incision is clean, dry, and intact. The optifoam dressing is in good condition. There is minimal soft tissue swelling and ecchymosis surrounding the medial and lateral aspects of the incision. Calf is soft, no tenderness with palpation. Plantar flexion, dorsiflexion, EHL, FHL are intact. Sensory exam to light touch throughout the extremity is intact, dorsal pedis pulses 2+. - Labs CBC & Chem 7: 03/28/18 05:01 03/27/18 12:35 Labs: Abnormal Lab Results - Last 24 Hours (Table) 03/27/18 03/27/18 03/27/18 Range/Units 12:35 16:26 21:03 Chloride 110 H (98-107) mmol/L BUN 18 H (7-17) mg/dL Glucose 138 H (74-99) mg/dL POC Glucose (mg/dL) 150 H 185 H (75-99) mg/dL 03/28/18 03/28/18 Range/Units 06:04 11:39 Chloride (98-107) mmol/L BUN (7-17) mg/dL Glucose (74-99) mg/dL POC Glucose (mg/dL) 117 H 149 H (75-99) mg/dL Assessment and Plan Plan: Assessment: 1. Postop day #1 status post left total hip arthroplasty Plan: Pain control, we'll discharge home on oral medication GI and DVT prophylaxis, resume Xarelto after discharge Wound care instructions discussed Nursing and physical therapy after discharge Medical recommendations/cardiac recommendations Discharge planning: Patient will likely be discharged home today Time with Patient: Less than 30
--- NOTE | 2018-03-28 12:45 | P.DS ---
Providers Date of admission: 03/27/18 06:12 Expected date of discharge: 03/28/18 Attending physician: Tej Somers Consults: 03/27/18 09:48 Consult Physician Routine Consulting Provider: Tricia Perez Consult Reason/Comments: Medical Management Do you want consulting provider notified?: Yes Primary care physician: Stated None Hospital Course: Date of admission: 03/27/2018 Date of discharge: 03/28/2018 Admission diagnosis: Status post direct anterior left total hip arthroplasty Discharge diagnosis: Same Attending physician: Dr. Somers Surgical procedures: Direct anterior left total hip arthroplasty Brief history: Patient is a 63-year-old female with a history of progressive primary left hip osteoarthritis. At this point patient has failed conservative treatment measures and has opted to proceed with a elective direct anterior left total hip arthroplasty. Hospital course: Details of patient's surgery can be found in operative report. Patient tolerated the procedure well and was subsequently transported to orthopedic floor. Patient's orthopeidc and medical care was provided daily. Patient had daily laboratory tests performed for evaluation of overall blood counts. Patient had daily physical therapy to include strengthening range of motion as well as education with walker ambulation. Patient was treated with Xarelto for their postoperative DVT prophylaxis during their inpatient stay. Patient was noted to have a relatively uneventful postoperative course. Patient reported satisfactory pain control with oral pain medications by postoperative day 0. Patient showed satisfactory progress with physical therapy. Patient moved steadily through the program and had no difficulty meeting the goals by postoperative day 1. Given patient's otherwise satisfactory course and having met physical therapy goals, plan is to discharge patient home on postoperative day 1. Discharge condition/disposition: Patient will be discharged home in stable condition. Discharge medications: Instructions are given on resumption of patient's normal daily medications per primary care recommendation, in addition patient will be prescribed [place] 5 mg/325 mg, Colace 100 mg. Discharge instructions: 1. Wound care and infection precautions, keep incision dry and covered while showering], no lotions, creams, moisturizers. No soaking, tubs, pools, hottubs. Do not scrub over the incision. 2. Weight-bear [as tolerated] with walker / cane until follow-up. 3. Ice and elevate when necessary. Do not exceed 20 minutes per hour with ice pack. 4. Utilize compression sleeve until seen at first follow up appointment. 5. Visiting nursing care. 6. Home physical therapy. 7. Pain meds and anticoagulants per prescription. 8. Pain medication has potential to cause constipation. Increase oral fluid and fiber intake. Contact primary care provider if you have not had a bowel movement within 48 hours after discharge 9. No anti-inflammatory medication until discussed at first post operative visit, this including Motrin, Aleve, Mobic, Diclofenac. 10. Follow up in office at 2 weeks postop with Shamar Pepe PA-C 11. Follow up with your primary care doctor 7-10 days after discharge. 12. Contact [facility] with any questions, . Procedures: Direct anterior left total hip arthroplasty Patient Condition at Discharge: Good Plan - Discharge Summary Discharge Rx Participant: Yes New Discharge Prescriptions: New Amiodarone [Cordarone] 200 mg PO BID #60 tab Docusate [Colace] 100 mg PO DAILY #30 capsule Hydrocodone/Acetaminophen [[place] 5-325] 1 each PO Q6HR PRN #28 tab PRN Reason: Pain Continue Lovastatin [Mevacor] 40 mg PO HS Rivaroxaban [Xarelto] 20 mg PO AC-SUPPER tab Spironolactone [Aldactone] 25 mg PO DAILY #30 tab Metoprolol Tartrate [Lopressor] 50 mg PO BID #90 tab Lisinopril [Zestril] 10 mg PO BID No Action metFORMIN HCL [Glucophage] 500 mg PO BID Levothyroxine Sodium [Synthroid] 25 mcg PO DAILY Discharge Medication List Lovastatin [Mevacor] 40 mg PO HS 11/21/16 [History] metFORMIN HCL [Glucophage] 500 mg PO BID 11/21/16 [History] Rivaroxaban [Xarelto] 20 mg PO AC-SUPPER tab 11/24/16 [Rx] Spironolactone [Aldactone] 25 mg PO DAILY #30 tab 11/24/16 [Rx] Metoprolol Tartrate [Lopressor] 50 mg PO BID #90 tab 12/20/16 [Rx] Lisinopril [Zestril] 10 mg PO BID 02/03/17 [History] Levothyroxine Sodium [Synthroid] 25 mcg PO DAILY 03/22/18 [History] Amiodarone [Cordarone] 200 mg PO BID #60 tab 03/28/18 [Rx] Docusate [Colace] 100 mg PO DAILY #30 capsule 03/28/18 [Rx] Hydrocodone/Acetaminophen [[place] 5-325] 1 each PO Q6HR PRN #28 tab 03/28/18 [Rx] Follow up Appointment(s)/Referral(s): Wei Yusuf MD [STAFF PHYSICIAN] - 2 Weeks Thomas Pepe PAC [PHYSICIAN B[employer]ING [employer]ACHINE FEEDER] - 2 Weeks Activity/Diet/Wound Care/Special Instructions: Orthopedic Discharge Instructions: 1. Wound care and infection precautions, keep incision dry and covered while showering, no lotions, creams, moisturizers. No soaking, pools, hot tubs. Do not scrub over incision. 2. Weight-bear as tolerated with walker / cane until follow-up. 3. Ice and elevate when necessary. Do not exceed 20 minutes per hour with ice pack. 4. Utilize compression sleeve until seen at first follow up appointment. 5. Pain meds and anticoagulants per prescription. 6. Pain medication has potential to cause constipation. Increase oral fluid and fiber intake. Contact primary care provider if you have not had a bowel movement within 48 hours after discharge. 7. No anti-inflammatory medication until discussed at first post operative visit, this including Motrin, Aleve, Mobic, Diclofenac. 8. Follow up in office at 2 weeks postop with Shamar Pepe PA-C 9. Follow up with your primary care doctor 7-10 days after discharge. 10. Contact [facility] with any questions, . Discharge Disposition: HOME WITH HOME HEALTH SERVICES
--- NOTE | 2018-03-28 13:39 | P.PN ---
Subjective Progress Note Date: 03/28/18 Patient seen and examined at bedside. [place] with a walker and doing well only complains of mild left hip discomfort. Currently in A. fib with ventricular rate controlled. Objective - Vital Signs Vital signs: Vital Signs Temp 97.8 F 03/28/18 11:01 Pulse 86 03/28/18 12:00 Resp 18 03/28/18 11:01 BP 104/48 03/28/18 11:01 Pulse Ox 97 03/28/18 11:01 Intake & Output 03/27/18 03/28/18 03/28/18 18:59 06:59 18:59 Intake Total 1802 172.931 240 Output Total 1000 1450 Balance 802 -1277.069 240 Weight 87.1 kg 95.5 kg Intake: IV 1580 Intake, IV Titration 52.931 Amount Amiodarone 450 mg In 52.931 Dextrose 5% in Water 250 ml @ 1 MG/MIN 34.53 mls/ hr IV .Q7H31M [facility] Rx#: [id number] Oral 222 120 240 Output: Urine 800 1450 Estimated Blood Loss 200 Other: Voiding Method Toilet # Voids 2 - Exam Constitutional: No acute distress, conversant, pleasant Eyes: Anicteric sclerae, moist conjunctiva, no lid-lag, PERRLA ENMT: NC/AT,Oropharynx clear, no erythema, exudates Neck:Supple, FROM, no masses, or JVD, No carotid bruits; No thyromegaly Lungs: Clear to auscultation, Clear to percussion, Normal respiratory effort, no accessory muscle use Cardiovascular: Irregularly irregular No murmurs, gallops, or rubs no peripheral edema Abdominal: Soft Nontender, nom distended, no guarding, no rebound or rigidity, Normoactive bowel sounds No hepatomegaly, No splenomegaly, No palpable mass No abdominal wall hernia noted Skin: Normal temperature, tone, texture, turgor, No induration No subcutaneous nodules, No rash, lesions, No ulcers Extremities:No digital cyanosis No clubbing, Pedal pulses intact and symmetrical Radial pulses intact and symmetrical Normal gait and station, No calf tenderness Psychiatric: Alert and oriented to person, place and time, Appropriate affect Intact judgement Neuro: Muscles Strength 5/5 in all 4 extremities, Sensation to light touch grossly present throughout, Cranial nerves II-XII grossly intact. No focal sensory deficits - Labs CBC & Chem 7: 03/28/18 05:01 03/27/18 12:35 Labs: Abnormal Lab Results - Last 24 Hours (Table) 03/27/18 03/27/18 03/28/18 Range/Units 16:26 21:03 06:04 POC Glucose (mg/dL) 150 H 185 H 117 H (75-99) mg/dL 03/28/18 Range/Units 11:39 POC Glucose (mg/dL) 149 H (75-99) mg/dL Assessment and Plan (1) Atrial fibrillation with RVR Narrative/Plan: * Persistent A. fib ventricular rate controlled * Plan to transition to oral amiodarone 200 mg by mouth twice a day * Continue anticoagulation with Xarelto Current Visit: Yes Status: Resolved Code(s): I48.91 - UNSPECIFIED ATRIAL FIBRILLATION SNOMED Code(s): 947927355431411 (2) Essential hypertension Narrative/Plan: * Blood pressure stable controlled Current Visit: Yes Status: Acute Code(s): I10 - ESSENTIAL (PRIMARY) HYPERTENSION SNOMED Code(s): 29253301 (3) Type 2 diabetes mellitus Narrative/Plan: * Blood sugars are stable Current Visit: Yes Status: Acute Code(s): E11.9 - TYPE 2 DIABETES MELLITUS WITHOUT COMPLICATIONS SNOMED Code(s): 96003213 (4) Dyslipidemia Current Visit: Yes Status: Acute Code(s): E78.5 - HYPERLIPIDEMIA, UNSPECIFIED SNOMED Code(s): 242471379 Plan: Disposition * Patient medically stable for discharge continue amiodarone orally and Xarelto * Plan to sign off today
[2018-03-28] MEDS ORDERED: RIVAROXABAN 20 MG TAB PO SCH (17:30)
== END 2018-03-28 15:22 | disposition home health service (06) | DRG 470 ==
LOC: 2ORMAIN 06:12 → 4SSUR 11:39 → 3SCARD 15:37
PROVIDERS: ADMIT Orthopaedic Surgery; ATTEND Orthopaedic Surgery
PROC: 30233N0 Transfusion of Autologous Red Blood Cells into Peripheral Vein, Percutaneous Approach (ICD-10-PCS; 2018-03-27)
PROC: 0SRB04A Replacement of Left Hip Joint with Ceramic on Polyethylene Synthetic Substitute, Uncemented, Open Approach (ICD-10-PCS; principal; 2018-03-27 08:00)
DX: M16.12 Unilateral primary osteoarthritis, left hip (principal); I48.0 Paroxysmal atrial fibrillation; I10 Essential (primary) hypertension; E78.5 Hyperlipidemia, unspecified; E11.9 Type 2 diabetes mellitus without complications; L30.9 Dermatitis, unspecified; E03.9 Hypothyroidism, unspecified; Z79.890 Hormone replacement therapy; Z79.84 Long term (current) use of oral hypoglycemic drugs; Z79.01 Long term (current) use of anticoagulants; Z79.899 Other long term (current) drug therapy; Z96.611 Presence of right artificial shoulder joint; Z91.040 Latex allergy status; Z91.048 Other nonmedicinal substance allergy status; Z83.3 Family history of diabetes mellitus; Z82.49 Family history of ischemic heart disease and other diseases of the circulatory system; Z80.0 Family history of malignant neoplasm of digestive organs
CPT/HCPCS: 36415; 73501; 80048; 83735; 85025; 86850; 86891; 86900; 86901; 88300; 93005

== ENCOUNTER → 2018-04-10 | Outpatient (CLI) | payer MEDICAID ==
[2018-04-10 16:47] LABS: HCT 40.9 % (34.0-46.0); HGB 12.9 gm/dL (11.4-16.0); Hypochromasia Slight; MCH 30.6 pg (25.0-35.0); MCHC 31.6 g/dL (31.0-37.0); MCV 96.9 fL (80.0-100.0); Mean Platelet Volume 6.5; RBC 4.22 m/uL (3.80-5.40); RDW 13.6 % (11.5-15.5); WBC 11.8 k/uL (3.8-10.6)
[2018-04-10 16:52] LABS: Platelet Count 728 k/uL (150-450)
[2018-04-10 17:16] LABS: Potassium 4.5 mmol/L (3.5-5.1)
== END | disposition home or self-care (01) ==
LOC: LABPAT 16:15
PROVIDERS: ATTEND Internal Medicine Interventional Cardiology
DX: Z01.812 Encounter for preprocedural laboratory examination (principal); E78.2 Mixed hyperlipidemia; I48.1 Persistent atrial fibrillation
CPT/HCPCS: 80051; 82565; 84520; 85027

== ENCOUNTER → 2018-04-23 | Day surgery (SDC) | payer MEDICAID ==
[2018-04-18 11:56] VITALS: BMI 31.7
[~2018-04-23] MED LIST changes: -ACETAMINOPHEN TAB 500 MG TAB PO ONE; +AMIODARONE 200 MG TAB PO SCH; +ATORVASTATIN 10 MG TAB PO SCH; +DOCUSATE 100 MG CAP PO SCH; +HYDROcodone/APAP 5-325MG 1 EACH TAB PO PRN; +LEVOTHYROXINE 25 MCG TAB PO SCH; -LIDOCAINE 1% 20 ML VIAL (10MG/ML) FOR IV START INTRADERMA PRN; +LISINOPRIL 10 MG TAB PO SCH; -MELOXICAM 7.5 MG TAB PO ONE; +METOPROLOL TARTRATE 50 MG TAB PO SCH; -MIDAZOLAM (PF) 2 MG/2 ML VIAL IV PRN; +PROPOFOL 10 MG/ML 20 ML VIAL IV ONE; +RIVAROXABAN 20 MG TAB PO SCH; +SODIUM CHLORIDE 0.9% 1,000 ML IV SCH; +SODIUM CHLORIDE 0.9% 500 ML 500 ML IV ONE; +SPIRONOLACTONE 25 MG TAB PO SCH; -TRANEXAMIC ACID 1,000 MG in SODIUM CHLORIDE 0.9% 50 ML IVPB ONE; -ceFAZolin IN SWFI 2 GM/20 ML SYRINGE IVP ONE; +metFORMIN 500 MG TAB PO SCH
[2018-04-23 07:45] VITALS: RESP 18; TEMP 98
--- NOTE | 2018-04-23 08:14 | ECHOT ---
TRANSESOPHAGEAL ECHOCARDIOGRAM INDICATION: Evaluation of left atrial appendage. PROCEDURE: After explaining the procedure to the patient, its risks and complication, blood pressure, heart rate, O2 saturation was monitored. The throat was sprayed with Cetacaine. She received sedation per Anesthesia Department. The probe was introduced into the esophagus without difficulty, images were obtained. Following that, the probe was removed. There was no immediate complication. FINDING: Left atrial size is mildly dilated. Spontaneous contrast was noted. Left atrial appendage is normal. Left ventricular size is normal. There is evidence of mild to moderate global hypokinesis, estimated ejection fraction 45%. The aortic valve appears to be normal. Mitral valve appears to be normal. Tricuspid valve appears to be normal. Descending thoracic aorta appears to be normal. There was no shunting by contrast bubble study. No pericardial effusion was noted. Doppler pulse wave and color Doppler obtained and revealed a mild mitral and tricuspid regurgitation. There was no shunting by color Doppler study. CONCLUSION: 1. Dilated left atrium with spontaneous contrast and normal appearance left atrial appendage. 2. Normal left ventricular size with mildly to moderately impaired left ventricular systolic function. 3. Mild mitral and tricuspid regurgitation. 4. No shunting across the interatrial septum. 5. Normal appearance of the descending thoracic aorta. MMODL / IJN: [id number] /
--- NOTE | 2018-04-23 08:20 | CE ---
CARDIAC ELECTROPHYSIOLOGY REPORT CARDIOVERSION PROCEDURE: INDICATION: Atrial fibrillation. PROCEDURE: After explaining the procedure to the patient, its risks and the complications, after obtaining sedated state and performing transesophageal echocardiogram, a synchronized biphasic cardioversion using 250 joules was performed with orthodoxy normal sinus rhythm. There was no immediate complication. ROCKY / SIRENA: [id number] /
[2018-04-23 08:45] LABS: Glucose,Whole Blood 92 mg/dL (75-99)
[2018-04-23 09:38] VITALS: BP 100/53; PULSE 43
== END | disposition home or self-care (01) ==
LOC: CATHCVL 06:25
PROVIDERS: ATTEND Internal Medicine Interventional Cardiology
DX: I48.1 Persistent atrial fibrillation (principal); I08.1 Rheumatic disorders of both mitral and tricuspid valves; I10 Essential (primary) hypertension; E78.2 Mixed hyperlipidemia; I42.8 Other cardiomyopathies; E11.9 Type 2 diabetes mellitus without complications; Z82.49 Family history of ischemic heart disease and other diseases of the circulatory system; Z79.01 Long term (current) use of anticoagulants; Z79.84 Long term (current) use of oral hypoglycemic drugs; Z79.890 Hormone replacement therapy; Z79.899 Other long term (current) drug therapy
CPT/HCPCS: 92960; 93312; 93320; 93325

== ENCOUNTER → 2018-06-04 | Outpatient (CLI) | payer MEDICAID ==
[2018-06-04 10:30] LABS: Basophils % (A) 1 %; Eosinophils # (A) 0.2 k/uL (0-0.7); Eosinophils % (A) 2 %; HCT 38.7 % (34.0-46.0); HGB 12.5 gm/dL (11.4-16.0); Lymphocytes # (A) 1.5 k/uL (1.0-4.8); Lymphocytes % (A) 24 %; MCH 30.8 pg (25.0-35.0); MCHC 32.4 g/dL (31.0-37.0); MCV 95.2 fL (80.0-100.0); Mean Platelet Volume 6.7; Monocytes # (A) 0.3 k/uL (0-1.0); Monocytes % (A) 4 %; Neutrophils # (A) 4.2 k/uL (1.3-7.7); Neutrophils % (A) 68 %; Platelet Count 257 k/uL (150-450); RBC 4.06 m/uL (3.80-5.40); RDW 14.1 % (11.5-15.5); WBC 6.1 k/uL (3.8-10.6)
[2018-06-04 17:36] LABS: Albumin 4.1 g/dL (3.80-4.90); Albumin/Globulin Ratio 2.05 (1.60-3.17); Calcium 9.1 mg/dL (8.7-10.3); Potassium 4.7 mmol/L (3.5-5.5); Total Bilirubin 0.6 mg/dL (0.3-1.2); Total Protein 6.1 g/dL (6.2-8.2)
[2018-06-04 20:23] LABS: Hemoglobin A1C 5.3 % (4.0-6.0)
== END ==
LOC: LABWHC1 09:45
PROVIDERS: ATTEND Family Medicine
DX: E11.9 Type 2 diabetes mellitus without complications (principal)
CPT/HCPCS: 36415; 80053; 80061; 83036; 84443; 85025

== ENCOUNTER → 2018-07-17 | Outpatient (CLI) | payer MEDICAID ==
[2018-07-17 16:02] LABS: Albumin 4.1 g/dL (3.80-4.90); Albumin/Globulin Ratio 2.16 (1.60-3.17); Anion Gap 7.6 mmol/L (4.00-12.00); Calcium 9.2 mg/dL (8.7-10.3); Carbon Dioxide 24.4 mmol/L (21.6-31.8); Globulin 1.9 g/dL (1.6-3.3); Total Bilirubin 0.4 mg/dL (0.2-1.2)
== END | disposition home or self-care (01) ==
LOC: LABWHC1 09:11
PROVIDERS: ATTEND Internal Medicine Interventional Cardiology
DX: I48.1 Persistent atrial fibrillation (principal)
CPT/HCPCS: 36415; 80053; 84443

== ENCOUNTER 2018-08-28 06:52 | Day surgery (SDC) | payer MEDICAID ==
[2018-08-27 10:39] VITALS: BMI 32.5
[~2018-08-28 06:52] MED LIST changes: -AMIODARONE 200 MG TAB PO SCH; -ATORVASTATIN 10 MG TAB PO SCH; -DOCUSATE 100 MG CAP PO SCH; -HYDROcodone/APAP 5-325MG 1 EACH TAB PO PRN; +LACTATED RINGERS 1,000 ML IV SCH; -LEVOTHYROXINE 25 MCG TAB PO SCH; -LISINOPRIL 10 MG TAB PO SCH; -METOPROLOL TARTRATE 50 MG TAB PO SCH; -PROPOFOL 10 MG/ML 20 ML VIAL IV ONE; -RIVAROXABAN 20 MG TAB PO SCH; -SODIUM CHLORIDE 0.9% 1,000 ML IV SCH; -SODIUM CHLORIDE 0.9% 500 ML 500 ML IV ONE; -SPIRONOLACTONE 25 MG TAB PO SCH; -metFORMIN 500 MG TAB PO SCH
[2018-08-28] MEDS ORDERED: LIDOCAINE 1% 20 ML VIAL (10MG/ML) FOR IV START INTRADERMA ONE (07:26)
[2018-08-28 07:29] VITALS: TEMP 98.1
[2018-08-28 07:39] LABS: Glucose,Whole Blood 84 mg/dL (75-99)
[2018-08-28] MEDS ORDERED: PROPOFOL 10 MG/ML 20 ML VIAL IV ONE (07:45)
[2018-08-28] MEDS ORDERED: GLYCOPYRROLATE 0.2 MG/ML 2 ML VIAL ONE (07:45)
--- NOTE | 2018-08-28 08:37 | P.PCN ---
Date of Procedure: 08/28/18 Description of Procedure: BRIEF HISTORY: Patient is a pleasant 63-year-old female presents for colonoscopy in the outpatient setting for screening. The patient has a strong family history of colon cancer in her sister was diagnosed in her 50s and brother who was diagnosed in his mid 60s. She reports her last colonoscopy was approximately 5- 6 years ago and normal. She does have a history of polyps in the past. No abdominal pain reported. No change in bowel habits, blood per rectum, constipa tion or diarrhea. PROCEDURE PERFORMED: Colonoscopy with polypectomy. PREOPERATIVE DIAGNOSIS: High risk colon cancer screening, personal history of colon polyps, family history of colon cancer (brother and sister). ESTIMATED BLOOD LOSS: Minimal. IV sedation per Anesthesia. PROCEDURE: After informed consent was obtained, the patient, was brought into the endoscopy unit. IV sedation was administered by Anesthesia under continuous monitoring. Digital rectal examination was normal. Initially the Olympus CF-190 flexible video colonoscope was then inserted in the rectum, gradually advanced into the cecum without any difficulty. Careful examination was performed as the scope was gradually being withdrawn. Ileocecal valve and the appendiceal orifice were visualized and appeared normal. Prep was excellent. Mucosa of the cecum, ascending colon, transverse colon, descending colon, sigmoid colon, and rectum appeared normal. Mild scattered diverticulosis in the left colon. 2 diminutive 2 mm flat polyps in the rectum removed with cold forcep polypectomy. Mild internal hemorrhoids. Retroflexion was performed in the rectum and no lesions were seen. The patient tolerated the procedure well. IMPRESSION: 2 diminutive rectal polyps removed with cold forcep polypectomy. Mild left-sided diverticulosis. Mild internal hemorrhoids RECOMMENDATIONS: Findings of this examination were discussed with the patient and her . Await pathology from biopsies. Okay to resume a high-fiber diet. Okay to resume anticoagulation. Plan on repeat colonoscopy in 5 years given family hi story for high risk colon cancer screening.
[2018-08-28 09:03] VITALS: BP 122/66; PULSE 44; RESP 18
== END 2018-08-28 09:00 | disposition home or self-care (01) ==
LOC: ORWHC2ENDO 06:52
PROVIDERS: ATTEND Internal Medicine
DX: Z12.11 Encounter for screening for malignant neoplasm of colon (principal); Z80.0 Family history of malignant neoplasm of digestive organs; Z86.010 Personal history of colon polyps; K57.30 Diverticulosis of large intestine without perforation or abscess without bleeding; K64.8 Other hemorrhoids; K62.1 Rectal polyp; E78.5 Hyperlipidemia, unspecified; I10 Essential (primary) hypertension; E11.9 Type 2 diabetes mellitus without complications; E07.9 Disorder of thyroid, unspecified; Z96.619 Presence of unspecified artificial shoulder joint; Z79.890 Hormone replacement therapy; Z79.899 Other long term (current) drug therapy; Z79.84 Long term (current) use of oral hypoglycemic drugs
CPT/HCPCS: 88305; 45380; J2704

== ENCOUNTER → 2018-11-29 | Outpatient (CLI) | payer MEDICAID ==
[2018-11-29 10:06] LABS: Basophils % (A) 1 %; Eosinophils # (A) 0.2 k/uL (0-0.7); Eosinophils % (A) 3 %; HCT 40.3 % (34.0-46.0); HGB 12.7 gm/dL (11.4-16.0); Lymphocytes # (A) 1.6 k/uL (1.0-4.8); Lymphocytes % (A) 27 %; MCH 30.8 pg (25.0-35.0); MCHC 31.5 g/dL (31.0-37.0); MCV 97.8 fL (80.0-100.0); Mean Platelet Volume 6.8; Monocytes # (A) 0.3 k/uL (0-1.0); Monocytes % (A) 5 %; Neutrophils # (A) 3.6 k/uL (1.3-7.7); Neutrophils % (A) 62 %; Platelet Count 260 k/uL (150-450); RBC 4.12 m/uL (3.80-5.40); RDW 13.3 % (11.5-15.5); WBC 5.7 k/uL (3.8-10.6)
[2018-11-29 17:46] LABS: African American GFR (CKD) 78.9 (60.0-200.0); Albumin/Globulin Ratio 2.11 (1.60-3.17); Anion Gap 7.6 mmol/L (4.00-12.00); BUN/Creat Ratio 15.56 Ratio (12.00-20.00); Calcium 9.2 mg/dL (8.7-10.3); Carbon Dioxide 27.4 mmol/L (21.6-31.8); Chol/HDL Ratio 3.74; Globulin 1.9 g/dL (1.6-3.3); LDL Cholesterol,Calculated 81.6 mg/dL (0.0-131.0); Potassium 4.4 mmol/L (3.5-5.5); Total Bilirubin 0.6 mg/dL (0.3-1.2); Total Protein 5.9 g/dL (6.2-8.2); VLDL Calculation 22.4 mg/dL (5.00-40.00)
[2018-11-29 19:54] LABS: Hemoglobin A1C 5.3 % (4.0-6.0)
== END | disposition home or self-care (01) ==
LOC: LABWHC1 09:25
PROVIDERS: ATTEND Family Medicine
DX: E11.9 Type 2 diabetes mellitus without complications (principal)
CPT/HCPCS: 36415; 80053; 80061; 83036; 84443; 85025

== ENCOUNTER → 2019-03-05 | Day surgery (SDC) | payer MEDICAID ==
[2019-03-04 14:26] VITALS: BMI 34.3
[~2019-03-05] MED LIST changes: +BENZOCAINE SPRAY 1 CAN MUCOUS MEM ONE; +FLECAINIDE 50 MG TAB PO SCH; -LACTATED RINGERS 1,000 ML IV SCH; +LEVOTHYROXINE 25 MCG TAB PO SCH; +LISINOPRIL 5 MG TAB PO SCH; +METOPROLOL TARTRATE 50 MG TAB PO SCH; +NON FORMULARY DRUG (Lovastatin 40 MG) PO SCH; +PROPOFOL 10 MG/ML 20 ML VIAL IV ONE; +RIVAROXABAN 10 MG TAB PO SCH; +SODIUM CHLORIDE 0.9% 1,000 ML IV SCH; +SPIRONOLACTONE 25 MG TAB PO SCH; +metFORMIN 500 MG TAB PO SCH
[2019-03-05 07:23] VITALS: TEMP 97.9
[2019-03-05 07:28] LABS: Glucose,Whole Blood 108 mg/dL (75-99)
[2019-03-05 07:56] LABS: Calcium 9.2 mg/dL (8.4-10.2); Potassium 4.1 mmol/L (3.5-5.1)
[2019-03-05 08:32] VITALS: RESP 16
--- NOTE | 2019-03-05 08:36 | CE ---
CARDIAC ELECTROPHYSIOLOGY REPORT CARDIOVERSION PROCEDURE NOTE: INDICATION: Atrial fibrillation. PROCEDURE: After explaining the procedure to the patient, its risks and the complications, after performing transesophageal echocardiogram and obtaining sedated state per anesthesia department, a synchronized 250 joules cardioversion was performed with muslim of normal sinus rhythm. There was no immediate complication. ROCKY / SIRENA: [id number] /
--- NOTE | 2019-03-05 08:40 | ECHOT ---
TRANSESOPHAGEAL ECHOCARDIOGRAM TRANSESOPHAGEAL ECHOCARDIOGRAM: INDICATION: Evaluation left atrial appendage. PROCEDURE: After explaining the procedure to the patient, its risks and complication, blood pressure, heart rate, O2 saturation was monitored. The throat was sprayed with Cetacaine she received sedation per Anesthesia Department. The probe was introduced esophagus without difficulties. Images were obtained, following that, the probe was removed. FINDINGS: Left atrial size is dilated. Left atrial appendage is normal. Left ventricular size is normal. There is evidence of global hypokinesis, estimated ejection fraction 45%. The aortic valve, mitral valve, tricuspid and pulmonic valve are normal. Descending thoracic aorta appears to be normal, contrast bubble study revealed no evidence of shunting across the interatrial septum. Doppler pulse wave and color Doppler obtained revealed mild to moderate mitral with moderate tricuspid regurgitation. There was no shunting by color Doppler study. CONCLUSION: 1. Dilated left atrium with normal appearance of the left atrial appendage. 2. Normal left ventricular size with mild to moderate global hypokinesis. 3. Mild to moderate mitral with moderate tricuspid regurgitation. 4. No shunting across the interatrial septum. 5. Normal appearance of the descending thoracic aorta. MMODL / IJN: [id number] /
[2019-03-05 09:40] VITALS: PULSE 47
[2019-03-05 10:09] VITALS: BP 95/46
== END | disposition home or self-care (01) ==
LOC: CATHCVL 06:58
PROVIDERS: ATTEND Internal Medicine Interventional Cardiology
DX: I48.19 Other persistent atrial fibrillation (principal); I08.1 Rheumatic disorders of both mitral and tricuspid valves; I42.8 Other cardiomyopathies; I10 Essential (primary) hypertension; E78.2 Mixed hyperlipidemia; E11.9 Type 2 diabetes mellitus without complications; I25.10 Atherosclerotic heart disease of native coronary artery without angina pectoris; Z79.899 Other long term (current) drug therapy; Z79.890 Hormone replacement therapy; Z79.01 Long term (current) use of anticoagulants; Z79.84 Long term (current) use of oral hypoglycemic drugs; Z91.040 Latex allergy status; Z97.2 Presence of dental prosthetic device (complete) (partial); Z98.890 Other specified postprocedural states; Z96.642 Presence of left artificial hip joint; Z82.49 Family history of ischemic heart disease and other diseases of the circulatory system
CPT/HCPCS: 93312; 93320; 93325; 92960; 80048; J2704

== ENCOUNTER → 2019-05-27 | Outpatient (CLI) | payer MEDICAID ==
[2019-05-27 11:22] LABS: HCT 41.1 % (34.0-46.0); HGB 13.4 gm/dL (11.4-16.0); MCH 31.3 pg (25.0-35.0); MCHC 32.6 g/dL (31.0-37.0); MCV 95.9 fL (80.0-100.0); Mean Platelet Volume 7.2; Platelet Count 315 k/uL (150-450); RBC 4.28 m/uL (3.80-5.40); RDW 12.5 % (11.5-15.5); WBC 8.1 k/uL (3.8-10.6)
== END | disposition home or self-care (01) ==
LOC: LABWHC1 10:14
PROVIDERS: ATTEND Internal Medicine Clinical Cardiac Electrophysiology
DX: Z01.818 Encounter for other preprocedural examination (principal); I42.8 Other cardiomyopathies; I48.19 Other persistent atrial fibrillation
CPT/HCPCS: 36415; 80051; 82565; 82947; 84520; 85027

== ENCOUNTER → 2019-07-23 | Outpatient (CLI) | payer MEDICAID ==
[2019-07-23 13:00] LABS: HGB 12.9 gm/dL (11.4-16.0); MCH 31.5 pg (25.0-35.0); MCHC 32.2 g/dL (31.0-37.0); MCV 97.8 fL (80.0-100.0); Mean Platelet Volume 7.2; Platelet Count 323 k/uL (150-450); RBC 4.09 m/uL (3.80-5.40); RDW 12.5 % (11.5-15.5); WBC 7.9 k/uL (3.8-10.6)
[2019-07-23 20:02] LABS: African American GFR (CKD) 68.9 (60.0-200.0); Anion Gap 6.5 mmol/L (4.00-12.00); Carbon Dioxide 24.5 mmol/L (21.6-31.8); Non-African American GFR(CKD) 59.5 (60.0-200.0); Potassium 4.5 mmol/L (3.5-5.5)
== END | disposition home or self-care (01) ==
LOC: LABWHC1 12:36
PROVIDERS: ATTEND Internal Medicine Clinical Cardiac Electrophysiology
DX: Z01.818 Encounter for other preprocedural examination (principal); I42.8 Other cardiomyopathies; Z11.59 Encounter for screening for other viral diseases; I48.19 Other persistent atrial fibrillation
CPT/HCPCS: 80051; 82565; 82947; 84520; 85027; 36415; U0003

== ENCOUNTER 2019-07-25 11:48 | Day surgery (SDC) | payer MEDICAID ==
[2019-07-24 09:29] VITALS: BMI 36.3
[~2019-07-25 11:48] MED LIST changes: -BENZOCAINE SPRAY 1 CAN MUCOUS MEM ONE; -FLECAINIDE 50 MG TAB PO SCH; +LACTATED RINGERS 1,000 ML IV SCH; -LEVOTHYROXINE 25 MCG TAB PO SCH; -LISINOPRIL 5 MG TAB PO SCH; -METOPROLOL TARTRATE 50 MG TAB PO SCH; -NON FORMULARY DRUG (Lovastatin 40 MG) PO SCH; -PROPOFOL 10 MG/ML 20 ML VIAL IV ONE; -RIVAROXABAN 10 MG TAB PO SCH; -SPIRONOLACTONE 25 MG TAB PO SCH; -metFORMIN 500 MG TAB PO SCH
[2019-07-25 12:35] LABS: Glucose,Whole Blood 118 mg/dL (75-99)
[2019-07-25] MEDS ORDERED: PROTAMINE SULFATE 10 MG/ML 5 ML VIAL IV ONE (14:53)
[2019-07-25] MEDS ORDERED: PROPOFOL 10 MG/ML 20 ML VIAL IV ONE (14:53)
[2019-07-25] MEDS ORDERED: HEPARIN SODIUM,PORCINE 10,000 UNIT/ML 1 ML VIAL ONE (14:53)
[2019-07-25] MEDS ORDERED: ROCURONIUM BROMIDE 10 MG/ML 5 ML VIAL IV ONE (14:53)
[2019-07-25] MEDS ORDERED: PHENYLEPHRINE-0.9% NACL SYG 1 MG/10 ML SYRINGE ONE (14:53)
[2019-07-25] MEDS ORDERED: NEOSTIGMINE 1 MG/ML 10 ML VIAL ONE (14:53)
[2019-07-25] MEDS ORDERED: fentaNYL (PF) 50 MCG/ML 2 ML AMP ONE (14:53)
[2019-07-25] MEDS ORDERED: SUCCINYLCHOLINE CHLORIDE 100 MG/5 ML SYR IV ONE (14:53)
[2019-07-25] MEDS ORDERED: GLYCOPYRROLATE 0.2 MG/ML 2 ML VIAL ONE (14:53)
[2019-07-25] MEDS ORDERED: MIDAZOLAM 2 MG/2 ML VIAL ONE (14:53)
[2019-07-25] MEDS ORDERED: LIDOCAINE 1% INJ 10MG/ML (20 ML MDV) ONE (15:53)
[2019-07-25] MEDS ORDERED: HEPARIN SOD,PORK IN 0.45% NACL 25,000 UNIT in 0.45% NACL 1 250ML.BAG IV ONE ×2 (16:04)
[2019-07-25] MEDS ORDERED: LIDOCAINE 1% INJ 10MG/ML (20 ML MDV) SQ ONE (16:04)
[2019-07-25] MEDS ORDERED: HEPARIN SODIUM (1,000 UNIT/ML) 1,000 UNIT in SODIUM CHLORIDE 0.9% 1,000 ML IRRIGATION ONE (17:30)
[2019-07-25] MEDS ORDERED: IOPAMIDOL-370 100ML BTL INJ ONE (18:40)
--- NOTE | 2019-07-25 18:53 | P.HPCAR ---
History of Present Illness This is Dr. Moy dictating an H/P on this patient The patient was interviewed and examined IMPRESSION / ASSESSMENT: Persistent symptomatic atrial fibrillation, failed electrical cardioversions Nonischemic cardiomyopathy, normal coronary arteries Type 2 diabetes for about 5 years Hypothyroidism on replacement therapy On xarelto Patient is stable from a cardiac standpoint. She denies any chest discomfort dizziness lightheadedness orthopnea PND syncope No fever chills cough expectoration PLAN: Proceed with A. fib ablation Further recommendations regarding antiarrhythmic drug therapy thereafter HPI Patient complains of tiredness and fatigue and reduced exercise capacity She has persistent atrial fibrillation does feel drug therapy as well as 3 electrical cardioversions She has not had any evidence for coronary artery disease number normal coronary arteries At this time she denies any fever chills cough expectoration She denies any chest discomfort heaviness tightness orthopnea PND or lower extremity edema ROS: No fever chills or rigors, no cough, phlegm or expectoration, no nausea, vomiting or diarrhea, no hematuria, dysuria, no musculoskeletal complaints, no strokes or seizures, no skin lesions. EXAMINATION: Afebrile 98.2F pulse rate 100 110 beats a minute irregular Normal respirations, blood pressure 138/84 mmHg normal pulse ox No murmurs no gallops No JVD no hepatojugular reflux No lower symmetry edema Abdomen soft nontender Breath sounds are clear no rhonchi no crackles REVIEW OF LABS, ECG & MEDICAL DATA Hemoglobin 12.9 Sodium 139, potassium 4.5, BUN 20 and creatinine 1.0, GFR 58 Elevated glucose LDL 81 Physical Exam Vitals: Vital Signs Temp Pulse Resp BP Pulse Ox 07/25/19 12:19 98.2 F 101 H 16 138/84 97 Intake and Output 07/25/19 07/25/19 07/25/19 06:59 14:59 22:59 Intake Total 700 536 Balance 700 536 Intake: IV 700 536 Other: Weight 97 kg Past Medical History Past Medical History: Atrial Fibrillation, Diabetes Mellitus, Hyperlipidemia, Hypertension, Osteoarthritis (OA), Skin Disorder Additional Past Medical History / Comment(s): hx. BRONCHITIS, ECZEMA, hx. colon polyps., SEE CARDIOLOGY H & P. History of Any Multi-Drug Resistant Organisms: None Reported Past Surgical History: Joint Replacement Additional Past Surgical History / Comment(s): rt shoulder HEMIARTHROPLASTY, COLONOSCOPY, left hip replaced, cardioversions Past Anesthesia/Blood Transfusion Reactions: No Reported Reaction, Motion Sickness Past Psychological History: No Psychological Hx Reported Smoking Status: Never smoker Past Alcohol Use History: None Reported Past Drug Use History: None Reported - Past Family History Mother Family Medical History: Cancer Additional Family Medical History / Comment(s): STOMACH CANCER Father History Unknown: Yes Additional Family Medical History / Comment(s): AT AGE 87 NOT SURE OF THE CAUSE Sister(s) Family Medical History: Cancer Additional Family Medical History / Comment(s): COLON CA Physical Examination Vital Signs Temp Pulse Resp BP Pulse Ox 07/25/19 12:19 98.2 F 101 H 16 138/84 97 Intake and Output 07/25/19 07/25/19 07/25/19 06:59 14:59 22:59 Intake Total 700 536 Balance 700 536 Intake: IV 700 536 Other: Weight 97 kg Results Current Medications Generic Name Dose Route Start Last Admin Trade Name Freq PRN Reason Stop Dose Admin Lactated Ringer's 1,000 mls @ 20 mls/hr 07/25/19 05:48 Lactated Ringers IV .Q24H CARMELITA Sodium Chloride 1,000 mls @ 20 mls/hr 07/25/19 05:48 07/25/19 12:35 Saline 0.9% IV 700 mls .Q24H CARMELITA Administration Intake and Output 07/25/19 07/25/19 07/25/19 06:59 14:59 22:59 Intake Total 700 536 Balance 700 536 Intake: IV 700 536 Other: Weight 97 kg Patient Weight 07/26/19 06:59 Weight 97 kg
--- NOTE | 2019-07-25 19:36 | P.PCN ---
Preoperative Diagnosis: Diagnosis Atrial fibrillation, symptomatic, refractory to therapy Persistent Associated with cardio myopathy, atrial fibrillation mediated, nonischemic Normal coronary arteries Result No left atrial appendage mass seen on intracardiac echo Successful pulmonary vein isolation of all veins using cryo-ablation Complete entrance block in all 4 veins confirmed No evidence for phrenic nerve injury Linear ablation along the left atrial roof between the right and left superior pulmonary veins anteriorly Linear ablation along the anterior septum along fractionated electrograms Patient remained in atrial fibrillation Scar mapped/voltage map of the left atrium revealed extensive electrical scar especially along the posterior wall of the left atrium Esophageal deflection YES Electrical cardioversion with a synchronized shock across the chest YES Procedure details Patient was brought to the EP lab in a fasting state. Written informed consent was obtained prior to the procedure. Procedure performed under general anesthesia After initial muscle relaxant use, muscle relaxants were not given thereafter in order to assess phrenic nerve during procedure. Patient prepped and draped as per protocol Full cryo-set up with standard preparation of the cryoablation tools done. Femoral Venous access obtained on the right and left groins Venous and arterial Sheaths placed. Diagnostic catheters for the high right atrium, phrenic nerve stimulation and pacing, His bundle, RV and coronary sinus placed Intracardiac echo catheter placed. Long sheath placed in the right atrium Left and right transseptal catheterization performed under intracardiac echo guidance. Intravenous heparin with aCT above 300 Later, catheter positioning and balloon positioning in the left atrium, under intracardiac echo guidance Diagnostic EP study with Coronary sinus pacing and recording Baseline measurements AH 76 ms HV 60 ms QRS 93, QT 337, sinus cycle length post cardioversion 949 ms Transseptal catheterization performed RA pressure 10/6/8 LA pressure 15/5/10 Transseptal catheterization performed with standard sheath. The cryoablation sheath was then placed with an over the wire exchange without any acute complications. All 4 pulmonary veins were isolated in the following sequence: Left superior followed by left inferior followed by right superior followed by right inferior The cryo-ablation balloon was placed at the os of each vein 1.5 mL of IV dye was injected to confirm an occluded vein Goal during cryoablation was to achieve complete occlusion of the pulmonary vein, achieve -30 degrees C at 30 seconds and achieve -40 degrees C at 60 seconds and a time to effect of less than 60-90 seconds, . If not the balloon was repositioned to obtain this result After completion of Cryoblation with durations from 180-240 seconds, entrance block was confirmed with the Attain circular catheter in a roving fashion around the antrum of the pulmonary veins Phrenic nerve pacing was performed from the SVC, right innominate vein area and diaphragm voltage was monitored. Diaphragmatic contractions were also monitored manually for strength of contraction. Parameter goals for each cryo freeze Complete occlusion of the appropriate vein -30 degrees C by 30 seconds -40 degrees C by 60 seconds Minimum between minus 40-55 degrees C Thaw time greater than 10 seconds Balloon visualized by intracardiac echo The esophagus was intubated. Esophageal Temperature monitoring with a CIRCA catheter formed. Esophageal deflection for hypothermia of the esophagus below 30 degrees C Left superior pulmonary vein Complete isolation, entrance block Left inferior pulmonary vein Complete isolation, entrance block Right superior pulmonary vein, during phrenic nerve pacing Complete isolation, entrance block Right inferior pulmonary vein, during phrenic nerve pacing Complete isolation, entrance block At the end of the procedure the Achieve catheter was once again used to check for entrance block Phrenic nerve stimulation was performed to confirm diaphragmatic stimulation the end of the procedure Cine fluoroscopy was performed at the very end of the procedure to confirm movement of both diaphragms with inspiration and expiration Following that 3-D electro-anatomic mapping of the left atrium was performed during atrial fibrillation The pulmonary veins were quiescent The posterior LA wall had extensive scar Fractionated electrograms were noted along the anterior roof as well as the anterior septum Lead and ablation was performed along the anterior septum Linear ablation was performed along the left atrial roof anteriorly The septal line was a joint to the right inferior pulmonary vein and to the roof line Only slight organization of atrial fibrillation was noted following these ablations At the end of the procedure the patient was extubated Heparin was reversed Venous sheaths were removed and hemostasis assured Procedures performed (PVI - CRYO Ablation) Diagnostic EP study CS pacing and recording Left and right transseptal catheterization 3D mapping) Intracardiac echocardiography Pulmonary vein isolation with transseptal and comprehensive EPS, [id number] Left atrial roof line, +[id number] Linear ablation, left atrium, anterior septum +[id number] Electrical cardioversion with a synchronized shock across the chest [id number]
[2019-07-25] MEDS ORDERED: ACETAMINOPHEN TAB 325 MG TAB PO PRN (19:41)
[2019-07-25] MEDS ORDERED: HYDROcodone/APAP 5-325MG 1 EACH TAB PO PRN (19:41)
--- NOTE | 2019-07-25 19:41 | P.PRLE ---
RE: Rosemarie Vazquez Dear Sofia Houston has persistent symptomatic atrial fibrillation with nonischemic cardio myopathy likely related to her atrial fibrillation She underwent A. fib ablation with pulmonary vein isolation and linear ablation in the left atrium She has a dilated left atrium with fairly extensive scar (electrical scar) in the posterior wall of the left atrium Despite extensive ablation there was only mild organizational atrial fibrillation and therefore I cardioverted successfully to sinus rhythm Once the code situation improves I would like to admit her to the hospital and initiate dofetilide She has a normal renal function and normal QT interval and I think this drug has the best chance of maintaining sinus rhythm following this ablation of she will continue anticoagulation lifelong Thank you for entrusting me with the care of the patient Warm regards Sincerely Angel Moy
[2019-07-25] MEDS ORDERED: RIVAROXABAN 20 MG TAB PO SCH (19:45)
[2019-07-25] MEDS ORDERED: LACTATED RINGERS 1,000 ML IV ONE (20:01)
[2019-07-25 20:56] LABS: Glucose,Whole Blood 105 mg/dL (75-99)
[2019-07-25] MEDS ORDERED: ACETAMINOPHEN IV (For NPO) 1,000 MG in EMPTY BAG 1 BAG IVPB ONE (21:00)
[2019-07-25] MEDS ORDERED: ATORVASTATIN 10 MG TAB PO SCH (21:00)
[2019-07-25] MEDS: metFORMIN 500 MG TAB PO SCH (21:01)
[2019-07-25] MEDS: LISINOPRIL 10 MG TAB PO SCH (21:01)
[2019-07-25] MEDS: METOPROLOL TARTRATE 25 MG TAB PO SCH (21:01)
[2019-07-26] MEDS ORDERED: LEVOTHYROXINE 25 MCG TAB PO SCH (06:30)
[2019-07-26 06:49] LABS: Glucose,Whole Blood 91 mg/dL (75-99)
[2019-07-26 07:11] VITALS: BP 117/45; PULSE 67; RESP 16; TEMP 98.4
[2019-07-26] MEDS: LISINOPRIL 10 MG TAB PO SCH (07:41)
[2019-07-26] MEDS: metFORMIN 500 MG TAB PO SCH (07:41)
[2019-07-26] MEDS: METOPROLOL TARTRATE 25 MG TAB PO SCH (07:43)
[2019-07-26] MEDS ORDERED: SPIRONOLACTONE 25 MG TAB PO SCH (09:00)
--- NOTE | 2019-07-26 09:51 | P.DS ---
Providers Attending physician: Angel Myo Primary care physician: Stated None Hospital Course: HISTORY OF PRESENTING ILLNESS This is a pleasant 64 year old female. She underwent successful a-fib ablation and cardioversion thereafter with pulmonary vein isolation. She has been up and ambulating without difficulty. She denies chest pain, dizziness or palpitations. No shortness of breath, she is coughing. Blood pressure 117/45 heart rate 67. PHYSICAL EXAMINATION CONSTITUTIONAL: No apparent distress. HEENT: Head is normocephalic. Pupils are equal, round. Sclerae anicteric. Mucous membranes of the mouth are moist. No JVD. No carotid bruit. CHEST EXAMINATION: Scattered rhonch, no rales or wheezes. No chest wall tenderness is noted on palpation or with deep breathing. HEART EXAMINATION: Regular rate and rhythm. S1, S2 heard. No murmurs, gallops or rub. EXTREMITIES: 2+ peripheral pulses, no lower extremity edema and no calf tenderness. Bilateral groin access site clean, dry and intact. No bleeding, oozing or hematoma. Sutures removed. ASSESSMENT Chronic persistent atrial fibrillation s/p ablation and cardioversion PLAN No changes in her medication profile. If she has further a-fib, will consider hospital admission for dofetilide initiation. No excess movement of her legs for the next 2 days, light activity. No pools, hot tub, sauna or tub baths for 1 week. Follow up in the office with Dr. Moy in 1-week. Nurse Practitioner note has been reviewed, I agree with a documented findings and plan of care. Patient was seen and examined. Plan - Discharge Summary Discharge Rx Participant: Yes New Discharge Prescriptions: No Action metFORMIN HCL [Glucophage] 500 mg PO BID Lovastatin [Mevacor] 40 mg PO HS Rivaroxaban [Xarelto] 20 mg PO AC-SUPPER tab Spironolactone [Aldactone] 25 mg PO DAILY #30 tab Lisinopril [Zestril] 10 mg PO BID Levothyroxine Sodium [Synthroid] 25 mcg PO DAILY Metoprolol Tartrate [Lopressor] 75 mg PO BID Discharge Medication List Lovastatin [Mevacor] 40 mg PO HS 11/21/16 [History] metFORMIN HCL [Glucophage] 500 mg PO BID 11/21/16 [History] Rivaroxaban [Xarelto] 20 mg PO AC-SUPPER tab 11/24/16 [Rx] Spironolactone [Aldactone] 25 mg PO DAILY #30 tab 11/24/16 [Rx] Lisinopril [Zestril] 10 mg PO BID 02/03/17 [History] Levothyroxine Sodium [Synthroid] 25 mcg PO DAILY 03/22/18 [History] Metoprolol Tartrate [Lopressor] 75 mg PO BID 03/04/19 [History] Follow up Appointment(s)/Referral(s): Angel Moy MD [STAFF PHYSICIAN] - As Needed Wei Yusuf MD [STAFF PHYSICIAN] - 1 Week (Follow with Dr. Yusuf) Patient Instructions/Handouts: Cardiac Ablation (DC) Activity/Diet/Wound Care/Special Instructions: 1) No immersion in water for 3 days - showers only - gentle cleansing at puncture site 2) Avoid driving for one day 3) Notify rock wool insulator if you experience any symptoms similar to ones you experienced prior to the procedure 4) Notify your rock wool insulator if you notice any increased pain, swelling, bleeding, drainage or redness to puncture sites. If bleeding at puncture site hold pressure and go to the emergency room. 5) Notify rock wool insulator if you experience ANY numbness, pain or cold sensations in your legs 6) Avoid stair climbing for 2 days, if you have to climb stairs do so slowly 7) Continue to support your sites with firm hand pressure during coughing, sneezing or laughing episodes for 3 days 8) Avoid strenuous activities such as kicking, running, jogging, straining at bowel movements, sexual activities ect for 3 days 9) No dressing is required over puncture site to groin
== END 2019-07-26 10:58 | disposition home or self-care (01) ==
LOC: CATHEP 11:48 → 1SOBS 18:34 → CATHEP 07-26 10:58
PROVIDERS: ATTEND Internal Medicine Clinical Cardiac Electrophysiology
DX: I48.19 Other persistent atrial fibrillation (principal); I42.8 Other cardiomyopathies; I10 Essential (primary) hypertension; E11.9 Type 2 diabetes mellitus without complications; E78.5 Hyperlipidemia, unspecified; E03.9 Hypothyroidism, unspecified; M19.90 Unspecified osteoarthritis, unspecified site; Z79.84 Long term (current) use of oral hypoglycemic drugs; Z79.01 Long term (current) use of anticoagulants; Z79.890 Hormone replacement therapy; Z79.899 Other long term (current) drug therapy; Z86.010 Personal history of colon polyps; Z96.642 Presence of left artificial hip joint; Z98.890 Other specified postprocedural states; Z80.0 Family history of malignant neoplasm of digestive organs; Z87.2 Personal history of diseases of the skin and subcutaneous tissue
CPT/HCPCS: 93005; 85347; 92960; 93662; 93613; 93656; 93657; C1759 ×2; C1769 ×4; C1894 ×2; C1893; C1733; C1730; C1732; J2001; J1644 ×2; J0131; Q9967

== ENCOUNTER → 2019-08-29 | Outpatient (CLI) | payer MEDICAID ==
[2019-08-29 12:58] LABS: Basophils # (A) 0.1 k/uL (0-0.2); Basophils % (A) 1 %; Eosinophils # (A) 0.2 k/uL (0-0.7); Eosinophils % (A) 3 %; HCT 42.1 % (34.0-46.0); HGB 14.1 gm/dL (11.4-16.0); Lymphocytes % (A) 27 %; MCH 32.5 pg (25.0-35.0); MCHC 33.4 g/dL (31.0-37.0); MCV 97.2 fL (80.0-100.0); Mean Platelet Volume 7.4; Monocytes # (A) 0.4 k/uL (0-1.0); Monocytes % (A) 5 %; Neutrophils # (A) 4.5 k/uL (1.3-7.7); Neutrophils % (A) 63 %; Platelet Count 329 k/uL (150-450); RBC 4.33 m/uL (3.80-5.40); RDW 12.4 % (11.5-15.5); WBC 7.2 k/uL (3.8-10.6)
[2019-08-29 17:58] LABS: African American GFR (CKD) 78.3 (60.0-200.0); Albumin 4.3 g/dL (3.80-4.90); Albumin/Globulin Ratio 1.95 (1.60-3.17); Anion Gap 9.3 mmol/L (4.00-12.00); BUN/Creat Ratio 16.67 Ratio (12.00-20.00); Calcium 9.3 mg/dL (8.7-10.3); Carbon Dioxide 25.7 mmol/L (21.6-31.8); Chol/HDL Ratio 4.14; Globulin 2.2 g/dL (1.6-3.3); LDL Cholesterol,Calculated 91.2 mg/dL (0.0-131.0); Non-African American GFR(CKD) 67.6 (60.0-200.0); Potassium 4.9 mmol/L (3.5-5.5); Total Bilirubin 0.7 mg/dL (0.3-1.2); Total Protein 6.5 g/dL (6.2-8.2); VLDL Calculation 21.8 mg/dL (5.00-40.00)
[2019-08-29 19:09] LABS: Hemoglobin A1C 5.8 % (4.0-6.0)
== END | disposition home or self-care (01) ==
LOC: LABWHC1 10:26
PROVIDERS: ATTEND Family Medicine
DX: E11.42 Type 2 diabetes mellitus with diabetic polyneuropathy (principal)
CPT/HCPCS: 36415; 80053; 80061; 83036; 84443; 85025

== ENCOUNTER → 2019-12-02 | Outpatient (CLI) | payer MEDICAID ==
[2019-12-02 10:51] LABS: Magnesium 2.2 mg/dL (1.6-2.3)
[2019-12-02 10:54] LABS: HCT 42.4 % (34.0-46.0); MCH 32.4 pg (25.0-35.0); MCV 98.1 fL (80.0-100.0); Mean Platelet Volume 6.7; Platelet Count 325 k/uL (150-450); RBC 4.32 m/uL (3.80-5.40); RDW 12.9 % (11.5-15.5); WBC 7.8 k/uL (3.8-10.6)
== END | disposition home or self-care (01) ==
LOC: LABPAT 09:33
PROVIDERS: ATTEND Internal Medicine Clinical Cardiac Electrophysiology
DX: Z01.818 Encounter for other preprocedural examination (principal); I47.1 Supraventricular tachycardia
CPT/HCPCS: 36415; 82565; 83735; 84520; 85027

== ENCOUNTER → 2020-01-15 | Outpatient (CLI) | payer MEDICAID ==
[2020-01-15 11:45] LABS: HCT 40.6 % (34.0-46.0); HGB 13.8 gm/dL (11.4-16.0); MCH 32.5 pg (25.0-35.0); MCHC 33.9 g/dL (31.0-37.0); MCV 95.9 fL (80.0-100.0); Mean Platelet Volume 6.9; Platelet Count 314 k/uL (150-450); RBC 4.24 m/uL (3.80-5.40); RDW 12.7 % (11.5-15.5); WBC 7.8 k/uL (3.8-10.6)
[2020-01-15 11:56] LABS: Potassium 4.6 mmol/L (3.5-5.1)
== END | disposition home or self-care (01) ==
LOC: LABPAT 10:14
PROVIDERS: ATTEND Internal Medicine Clinical Cardiac Electrophysiology
DX: Z01.818 Encounter for other preprocedural examination (principal); I47.1 Supraventricular tachycardia
CPT/HCPCS: 80051; 82565; 84443; 84520; 85027

== ENCOUNTER 2020-01-21 14:22 | Day surgery (SDC) | payer MEDICARE, MEDICAID, OTHER ==
[2020-01-15 14:35] VITALS: BMI 36.8
[2020-01-21] MEDS: SODIUM CHLORIDE 0.9% 1,000 ML IV SCH ×2 (07:10→22:28)
[2020-01-21 14:59] LABS: Glucose,Whole Blood 115 mg/dL (75-99)
[2020-01-21] MEDS ORDERED: SODIUM CHLORIDE 0.9% 1,000 ML IV ONE (15:13)
[2020-01-21] MEDS ORDERED: GLYCOPYRROLATE 0.2 MG/ML 2 ML VIAL ONE (16:45)
[2020-01-21] MEDS ORDERED: NEOSTIGMINE 1 MG/ML 10 ML VIAL ONE (16:45)
[2020-01-21] MEDS ORDERED: FUROSEMIDE 10 MG/ML 2 ML VIAL ONE (16:45)
[2020-01-21] MEDS ORDERED: PROPOFOL 10 MG/ML 20 ML VIAL IV ONE (16:45)
[2020-01-21] MEDS ORDERED: fentaNYL (PF) 50 MCG/ML 2 ML AMP ONE (16:45)
[2020-01-21] MEDS ORDERED: ROCURONIUM 10 MG/ML (10 ML VIAL) IV ONE (16:45)
[2020-01-21] MEDS ORDERED: SUCCINYLCHOLINE CHLORIDE 100 MG/5 ML SYR IV ONE (16:45)
[2020-01-21] MEDS ORDERED: MIDAZOLAM 2 MG/2 ML VIAL ONE (16:45)
--- NOTE | 2020-01-21 17:13 | P.HPCAR ---
History of Present Illness This is Dr. oMy dictating an H/P on this patient The patient was interviewed and examined IMPRESSION / ASSESSMENT: Recurrent, sustained atrial tachycardia with RVR, symptomatic with shortness of breath decrease in energy Mildly impaired LV systolic function Moderate MR and moderate TR History of hypertension History of dyslipidemia type 2 diabetes PLAN: Proceed with EP study and mapping of the atrial tachycardia. Patient is on Xarelto HPI Patient presented with increasing shortness of breath tiredness and fatigue She denies any dizziness palpitations fever chills cough orthopnea PND ROS: No fever chills or rigors, no cough, phlegm or expectoration, no nausea, vomiting or diarrhea, no hematuria, dysuria, no musculoskeletal complaints, no strokes or seizures, no skin lesions. EXAMINATION: Heart rate 120 beats a minute at rest, afebrile 98.4F Normal respirations at rest Blood pressure 134 of syndrome millimeters of mercury Heart sounds soft systolic murmur irregular Kim tachycardic at rest Abdomen soft nontender Extremity is warm no edema REVIEW OF LABS, ECG & MEDICAL DATA Home medications reviewed. Xarelto 20 mg daily metoprolol tartrate 75 mg twice daily levothyroxine lisinopril spironolactone ALLERGIES to adhesive tape and latex LISA in February revealed a dilated left atrium normal left atrial appendage Moderate global hypokinesis Moderate mitral regurgitation Moderate tricuspid regurgitation no interatrial shunting Twelve-lead ECG was reviewed and shows an atrial tachycardia the cycle length of about 310 ms Biphasic atrial electrograms in lead 1 positive followed by a broad negative Delayed positive in the inferior leads Delayed negative in aVL Delayed positive in V1 P waves duration is 108 ms Physical Exam Vitals: Vital Signs Temp Pulse Resp BP Pulse Ox 01/21/20 14:49 98.4 F 119 H 16 134/71 98 Intake and Output 01/21/20 01/21/20 01/21/20 06:59 14:59 22:59 Intake Total 20 Balance 20 Intake: IV 20 Other: Weight 98.6 kg Past Medical History Past Medical History: Diabetes Mellitus, Hyperlipidemia, Osteoarthritis (OA), Skin Disorder Additional Past Medical History / Comment(s): hx BRONCHITIS, ECZEMA, see Dr Moy H&P History of Any Multi-Drug Resistant Organisms: None Reported Past Surgical History: Cardiac Ablation, Joint Replacement Additional Past Surgical History / Comment(s): rt shoulder HEMIARTHROPLASTY, COLONOSCOPY, left hip replaced, cardioversions Past Anesthesia/Blood Transfusion Reactions: No Reported Reaction Smoking Status: Never smoker - Past Family History Mother Family Medical History: Cancer Additional Family Medical History / Comment(s): STOMACH CANCER Father History Unknown: Yes Additional Family Medical History / Comment(s): AT AGE 87 NOT SURE OF THE CAUSE Sister(s) Family Medical History: Cancer Additional Family Medical History / Comment(s): COLON CA Physical Examination Vital Signs Temp Pulse Resp BP Pulse Ox 01/21/20 14:49 98.4 F 119 H 16 134/71 98 Intake and Output 01/21/20 01/21/20 01/21/20 06:59 14:59 22:59 Intake Total 20 Balance 20 Intake: IV 20 Other: Weight 98.6 kg Results Current Medications Generic Name Dose Route Start Last Admin Trade Name Freq PRN Reason Stop Dose Admin Sodium Chloride 1,000 mls @ 20 mls/hr 01/21/20 06:02 Saline 0.9% IV .Q24H CARMELITA Intake and Output 01/21/20 01/21/20 01/21/20 06:59 14:59 22:59 Intake Total 20 Balance 20 Intake: IV 20 Other: Weight 98.6 kg Patient Weight 01/22/20 06:59 Weight 98.6 kg
[2020-01-21] MEDS ORDERED: HEPARIN SODIUM (1,000 UNIT/ML) 1,000 UNIT in SODIUM CHLORIDE 0.9% 1,000 ML IRRIGATION ONE (17:15)
[2020-01-21] MEDS ORDERED: LIDOCAINE 1% INJ 10MG/ML (20 ML MDV) SQ ONE (17:21)
[2020-01-21] MEDS ORDERED: HEPARIN SOD,PORK IN 0.45% NACL 25,000 UNIT in 0.45% NACL 1 250ML.BAG IV ONE (17:27)
[2020-01-21] MEDS ORDERED: LACTATED RINGERS 1,000 ML IV ONE (18:01)
[2020-01-21] MEDS ORDERED: PROTAMINE SULFATE 10 MG/ML 5 ML VIAL IV ONE (19:42)
[2020-01-21] MEDS ORDERED: ACETAMINOPHEN IV (For NPO) 1,000 MG in EMPTY BAG 1 BAG IVPB ONE (19:55)
[2020-01-21] MEDS ORDERED: HYDROcodone/APAP 5-325MG 1 EACH TAB PO PRN (19:55)
[2020-01-21] MEDS ORDERED: ACETAMINOPHEN TAB 325 MG TAB PO PRN (19:55)
--- NOTE | 2020-01-21 20:00 | P.PRLE ---
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 Successful ablation was performed and the tachycardia was terminated Thereafter her prior RF and cryoablation areas were interrogated She will continue xarelto in all other cardiac medications as before She does have a tendency for bursts of atrial tachycardia with adrenergic stimulation and therefore I would continue metoprolol Thank you for entrusting me with the care of the patient Warm regards Sincerely Angel Moy
[2020-01-21] MEDS ORDERED: ATORVASTATIN 10 MG TAB PO SCH (21:00)
[2020-01-21] MEDS ORDERED: RIVAROXABAN 20 MG TAB PO SCH (22:00)
--- NOTE | 2020-01-21 22:04 | CE ---
CARDIAC ELECTROPHYSIOLOGY REPORT Rosemarie Vazquez is a 65-year-old female who has undergone RF ablation and cryoablation for atrial fibrillation. She had sustained atrial tachycardia and she underwent EP study and radiofrequency ablation today after a detailed mapping procedure. Patient was brought to the EP lab in a fasting state. Written informed consent was obtained prior to the procedure. The patient was in atrial tachycardia at the start of the study. Atrial cycle length of 320 milliseconds. Venous sheaths were placed in the right and left femoral veins and via these diagnostic mapping ablation catheters as well as intracardiac echo catheter were placed. An intracardiac echo revealed no pericardial effusion, fairly preserved LV systolic function, and no left atrial appendage thrombus. Under intracardiac echo and fluoroscopic guidance, left and right transseptal catheterization was performed. RA pressure 12 x 5 x 9 mmHg and LA pressure 22 x 6 x 12 mmHg. PentaRay catheter was first placed in the left atrium and detailed electroanatomic mapping was performed with voltage mapping as well as activation mapping. The atrial tachycardia cycle length was 320 milliseconds. Upright P waves are noted in the inferior leads and in lead 1 but with delayed onset. The lead 1 had an early positivity followed by negativity (biphasic). Electroanatomic mapping revealed macroreentry involving the roof. Scar mapping revealed 2 gaps in the prior roof line. RF ablation was performed along the roof and a complete line of block was made from the left to the right superior pulmonary vein somewhat anteriorly. The tachycardia terminated once this line was completed in the mid section. Thereafter, very detailed electroanatomic mapping and scar mapping was performed to ensure the integrity of this RF line. There was no evidence for a gap at the end of the procedure. The scar map revealed voltages of less than 0.03 mV. Thereafter the pulmonary veins were interrogated and the pulmonary veins were completely isolated from the prior cryoablation procedure. However, the septum had fractionated electrograms and therefore RF ablation was performed along the septum from the roof down to the right inferior pulmonary veins. This segment of the septum was then completely isolated once the line was complete. However, this required 35-40 rosen of power and contact force greater than 15 g to ensure complete integrity of the line. The line was interrogated carefully and the segment between the pulmonary veins and this line in the posterior septum was completely quiescent at the end of the procedure. The 3rd area that was ablated was anterior to the roof line along the upper anterior wall. There were very fractionated signals with induction of atrial tachycardia with contact. These are long fractionated signals and RF ablation was performed in this region and then this region was then connected to the RF line. Thereafter, Isuprel was started. Isuprel resulted in induction of bursts of slow atrial tachycardia, which later had varying activation patterns. IV metoprolol was used and this was then terminated, but this slow arrhythmia was not mapped. This occurred only on Isuprel. Off Isuprel, burst stimulation was performed. Straight pacing was performed and no other arrhythmias could be induced. At the end of the procedure, all catheters were removed. The patient was transferred back to telemetry. Sinus cycle length at the end of the procedure was 1211 milliseconds, VT interval 140 milliseconds, QRS 101 milliseconds, QT 47 milliseconds. AH interval 86 milliseconds, HV interval 33 milliseconds. IMPRESSION: 1. Diagnostic EP study revealing atrial tachycardia involving the left atrial roof with recovery of RF lesion of the RF line within the roof. 2. Focal ablation in the upper anterior wall of the left atrium. 3. RF ablation along the septum with recovery from prior RF lesions and a complete RF line of block was made and was interrogated carefully. 4. The posterior septum was completely quiescent and this RF line of block as well as the roof line showed complete block with scar mapping. Patient tolerated the procedure well without any acute complications. PLAN: Resume the Xarelto and continue beta blockers. Please note that the patient's left atrium was mapped in sinus rhythm. She had many areas of fractionated electrograms in the left atrium, particularly in the anterior wall away from the RF lesions. MMODL / IJN: [id number] /
[2020-01-21] MEDS: metFORMIN 500 MG TAB PO SCH (22:49)
[2020-01-21 23:04] LABS: Glucose,Whole Blood 124 mg/dL (75-99)
[2020-01-21] MEDS: METOPROLOL TARTRATE 25 MG TAB PO SCH (23:16)
[2020-01-22] MEDS: lisinopriL 10 MG TAB PO SCH ×2 (00:59→08:10)
[2020-01-22] MEDS ORDERED: LEVOTHYROXINE 25 MCG TAB PO SCH (06:30)
[2020-01-22] MEDS: SODIUM CHLORIDE 0.9% 1,000 ML IV SCH (06:31)
[2020-01-22 06:53] LABS: Glucose,Whole Blood 114 mg/dL (75-99)
[2020-01-22] MEDS: METOPROLOL TARTRATE 25 MG TAB PO SCH (08:09)
[2020-01-22] MEDS: metFORMIN 500 MG TAB PO SCH (08:10)
[2020-01-22] MEDS ORDERED: SPIRONOLACTONE 25 MG TAB PO SCH (09:00)
[2020-01-22 09:29] VITALS: BP 114/54; PULSE 67; RESP 16; TEMP 98.4
[2020-01-22 12:10] LABS: Glucose,Whole Blood 98 mg/dL (75-99)
--- NOTE | 2020-01-23 10:33 | P.DS ---
Providers Attending physician: Angel Moy Primary care physician: [facility] Course: Patient is doing well. She denies any chest discomfort no dizziness lightheadedness or palpitations. She is sitting up in a chair No chest discomfort no dizziness lightheadedness no palpitations She had a short bursts of nonsustained atrial tachycardia was also documented on the ECG that lasted for a few seconds We had seen this on high-dose Isuprel during the procedure after successful ablation On examination she is afebrile 98.4F pulse rate in the 60s respirations are normal blood pressure 114/54 mmHg Normal heart sounds no murmurs no gallops or up Normal breath sounds no rhonchi no crackles Abdomen soft Groins of healed well no edema No JVD Impression Left atrial tachycardia, reentry involving the roof Successful ablation in termination This line was then interrogated and a complete block was noted Linear ablation in the septum Focal ablation in the anterior wall of the LAD Plan Continue reticulocyte regulation Resume beta blockers Continue other cardiac medications and follow-up in a week with Dr. Yusuf Plan - Discharge Summary Discharge Rx Participant: No New Discharge Prescriptions: Continue metFORMIN HCL [Glucophage] 500 mg PO BID Lovastatin [Mevacor] 40 mg PO HS Spironolactone [Aldactone] 25 mg PO DAILY #30 tab lisinopriL [Zestril] 10 mg PO BID Levothyroxine Sodium [Synthroid] 25 mcg PO DAILY Metoprolol Tartrate [Lopressor] 75 mg PO BID Rivaroxaban [Xarelto] 20 mg PO W/SUPPER Discharge Medication List Lovastatin [Mevacor] 40 mg PO HS 11/21/16 [History] metFORMIN HCL [Glucophage] 500 mg PO BID 11/21/16 [History] Spironolactone [Aldactone] 25 mg PO DAILY #30 tab 11/24/16 [Rx] lisinopriL [Zestril] 10 mg PO BID 02/03/17 [History] Levothyroxine Sodium [Synthroid] 25 mcg PO DAILY 03/22/18 [History] Metoprolol Tartrate [Lopressor] 75 mg PO BID 03/04/19 [History] Rivaroxaban [Xarelto] 20 mg PO W/SUPPER 01/15/20 [History] Follow up Appointment(s)/Referral(s): Wei Yusuf MD [STAFF PHYSICIAN] - 12/09/20 10:30 am () Activity/Diet/Wound Care/Special Instructions: Post EP study - Ablation instructions 1. Keep access sites dry for 2 days. 2. No heavy lifting or straining for 2 days. 3. Avoid bending the hips repeatedly for 2 days. 4. You may go up and down stairs slowly Call if the following is noted 1. Bleeding, increasing swelling or pain at the access sites. 2. Increasing chest discomfort, especially upon taking a deep breath. 3. Increasing shortness of breath, at rest or with exertion. 4. Undue cough / phlegm 5. Difficulty or pain while swallowing. 6. Pain or change in color in the extremities. 7. Fever, chills, rigors. 8. Increasing headache or neurologic symptoms. 9. Dizziness, fainting, palpitations Do not stop Xarelto Discharge Disposition: HOME SELF-CARE
== END 2020-01-22 13:07 | disposition home or self-care (01) ==
LOC: CATHEP 14:22 → 1SOBS 17:56 → CATHEP 01-22 13:07
PROVIDERS: ATTEND Internal Medicine Clinical Cardiac Electrophysiology
DX: I47.1 Supraventricular tachycardia (principal); I08.1 Rheumatic disorders of both mitral and tricuspid valves; I10 Essential (primary) hypertension; E78.5 Hyperlipidemia, unspecified; E11.9 Type 2 diabetes mellitus without complications; M19.90 Unspecified osteoarthritis, unspecified site; L30.9 Dermatitis, unspecified; Z96.642 Presence of left artificial hip joint; Z96.611 Presence of right artificial shoulder joint; Z98.890 Other specified postprocedural states; Z80.0 Family history of malignant neoplasm of digestive organs; E07.9 Disorder of thyroid, unspecified; Z97.2 Presence of dental prosthetic device (complete) (partial); Z79.84 Long term (current) use of oral hypoglycemic drugs; Z79.01 Long term (current) use of anticoagulants; Z79.890 Hormone replacement therapy; Z79.899 Other long term (current) drug therapy; Z91.040 Latex allergy status; Z91.09 Other allergy status, other than to drugs and biological substances
CPT/HCPCS: 93623; 93662; 93613; 93653; C1894; C1769 ×3; C1730; C1731; C1759; C1893; C1732; J2250; J2720; J1940; J2710; J2001; J3010; J1644 ×2; J0330; J2704

== ENCOUNTER → 2020-02-20 | Outpatient (CLI) | payer MEDICARE, OTHER ==
[2020-02-20 16:04] LABS: Chol/HDL Ratio 4.21
== END | disposition home or self-care (01) ==
LOC: LABWHC1 09:04
PROVIDERS: ATTEND Family Medicine
DX: E11.9 Type 2 diabetes mellitus without complications (principal)
CPT/HCPCS: 36415; 80061

== ENCOUNTER 2020-06-02 09:56 | Emergency (ER) | payer MEDICARE, OTHER ==
[2020-06-02 10:11] VITALS: BP 146/75; PULSE 62; RESP 17; TEMP 98.3
--- NOTE | 2020-06-02 10:47 | ED ---
General Adult HPI - General Chief complaint: Shortness of Breath Stated complaint: cough Time Seen by Provider: 06/02/20 10:05 Source: patient Mode of arrival: ambulatory Limitations: no limitations - History of Present Illness Initial comments: 65-year-old female presents to the emergency department with a chief complaint of a cough. Patient reports she was positive for Covid one week ago but does not have physical proof of her tests. Patient reports several days ago she developed a nonproductive cough that is not allowing her to get a good night sleep. She reports occasional myalgias but is still able to perform her ADLs without any difficulties. She denies any chest pain or shortness of breath. Denies any abdominal pain, nausea, vomiting or diarrhea. Denies any fevers or chills at home. - Related Data Home Medications Medication Instructions Recorded Confirmed Lovastatin [Mevacor] 40 mg PO HS 11/21/16 01/21/20 metFORMIN HCL [Glucophage] 500 mg PO BID 11/21/16 01/21/20 lisinopriL [Zestril] 10 mg PO BID 02/03/17 01/21/20 Levothyroxine Sodium [Synthroid] 25 mcg PO DAILY 03/22/18 01/21/20 Metoprolol Tartrate [Lopressor] 75 mg PO BID 03/04/19 01/21/20 Rivaroxaban [Xarelto] 20 mg PO W/SUPPER 01/15/20 01/21/20 Previous Rx's Medication Instructions Recorded Spironolactone [Aldactone] 25 mg PO DAILY #30 tab 11/24/16 Azithromycin [Zithromax Z-pack (6 0 mg PO DIRECTED #1 pack 06/02/20 tabs)] Dexamethasone [Decadron] 6 mg PO DAILY #6 tablet 06/02/20 Allergies Allergy/AdvReac Type Severity Reaction Status Date / Time adhesive tape Allergy Rash/Hives Verified 01/15/20 14:30 latex Allergy Rash/Hives Verified 01/15/20 14:30 Review of Systems ROS Statement: Those systems with pertinent positive or pertinent negative responses have been documented in the HPI. ROS Other: All systems not noted in ROS Statement are negative. Past Medical History Past Medical History: Atrial Fibrillation, Diabetes Mellitus, Hyperlipidemia, Hypertension, Osteoarthritis (OA), Skin Disorder Additional Past Medical History / Comment(s): past hx. BRONCHITIS, ECZEMA, hx. colon polyps History of Any Multi-Drug Resistant Organisms: None Reported Past Surgical History: Joint Replacement Additional Past Surgical History / Comment(s): rt shoulder HEMIARTHROPLASTY, COLONOSCOPY, left hip replaced, cardioversions Past Anesthesia/Blood Transfusion Reactions: No Reported Reaction Past Psychological History: No Psychological Hx Reported Smoking Status: Never smoker Past Alcohol Use History: None Reported Past Drug Use History: None Reported - Past Family History Mother Family Medical History: Cancer Additional Family Medical History / Comment(s): STOMACH CANCER Father History Unknown: Yes Additional Family Medical History / Comment(s): AT AGE 87 NOT SURE OF THE CAUSE Sister(s) Family Medical History: Cancer Additional Family Medical History / Comment(s): COLON CA General Exam Limitations: no limitations General appearance: alert, in no apparent distress, obese Head exam: Present: atraumatic, normocephalic, normal inspection Eye exam: Present: normal appearance, PERRL, EOMI Pupils: Present: normal accommodation ENT exam: Present: normal exam, normal oropharynx, mucous membranes moist, TM's normal bilaterally, normal external ear exam Neck exam: Present: normal inspection, full ROM. Absent: tenderness Respiratory exam: Present: normal lung sounds bilaterally (Bronchospastic cough). Absent: respiratory distress, wheezes, rales, rhonchi, stridor Cardiovascular Exam: Present: regular rate, normal rhythm, normal heart sounds. Absent: systolic murmur, diastolic murmur GI/Abdominal exam: Present: soft. Absent: distended, tenderness, guarding, rebound Extremities exam: Present: normal inspection, full ROM, normal capillary refill. Absent: tenderness, pedal edema, joint swelling Back exam: Present: normal inspection, full ROM. Absent: tenderness, CVA tenderness (R), CVA tenderness (L) Neurological exam: Present: alert, oriented X3, normal gait Psychiatric exam: Present: normal affect, normal mood Skin exam: Present: warm, dry, intact, normal color Course Vital Signs 06/02/20 10:07 Temperature 98.3 F Pulse Rate 62 Respiratory 17 Rate Blood Pressure 146/75 O2 Sat by Pulse 98 Oximetry Medical Decision Making - Medical Decision Making 65-year-old female presents to the emergency department with a chief complaint of a cough. On physical examination, she does have a bronchospastic cough. She tested positive exactly 1 week ago for Covid but did not have documentation. I was going to give the patient monoclonal antibody so I obtained a quick test which was negative. I offered the patient additional laboratory work, she declined. Patient would rather prefer some oral medication to help cope with the symptoms. I will give her azithromycin and oral steroids. Return parameters were discussed the patient was understanding and agreeable. Case discussed with Dr. Farias. - Lab Data Lab Results 06/02/20 Range/Units 10:26 Coronavirus (PCR) Not Detected (Not Detectd) Disposition Clinical Impression: Cough Disposition: HOME SELF-CARE Condition: Stable Instructions (If sedation given, give patient instructions): Coronavirus Disease 2019 (COVID-19) Additional Instructions: Take prescribed medication as directed.Please return to the Emergency Department if symptoms worsen or any other concerns. Prescriptions: Dexamethasone [Decadron] 6 mg PO DAILY #6 tablet Azithromycin [Zithromax Z-pack (6 tabs)] 0 mg PO DIRECTED #1 pack Is patient prescribed a controlled substance at d/c from ED?: No Referrals: Sofia White MD [Primary Care Provider] - 1-2 days Time of Disposition: 11:52
[2020-06-02] MEDS ORDERED: BAMLANIVIMAB (EUA) 700 MG, ETESEVIMAB (EUA) 1,400 MG in SODIUM CHLORIDE 0.9% 50 ML IVPB ONE (11:15)
[2020-06-02] MEDS ORDERED: SODIUM CHLORIDE 0.9% 50 ML IVPB ONE (11:45)
== END 2020-06-02 12:05 | disposition home or self-care (01) ==
LOC: EC 09:56
DX: R05 Cough (principal); R06.02 Shortness of breath; M79.10 Myalgia, unspecified site; I48.91 Unspecified atrial fibrillation; E11.9 Type 2 diabetes mellitus without complications; E78.5 Hyperlipidemia, unspecified; I10 Essential (primary) hypertension; M19.90 Unspecified osteoarthritis, unspecified site; Z79.84 Long term (current) use of oral hypoglycemic drugs; Z79.01 Long term (current) use of anticoagulants; Z20.822 Contact with and (suspected) exposure to COVID-19
CPT/HCPCS: 87635; 99284

== ENCOUNTER → 2020-10-02 | Outpatient (CLI) | payer MEDICARE, OTHER ==
[2020-10-02 15:00] LABS: Basophils # (A) 0.05 X 10*3/uL (0.00-0.10); Basophils % (A) 0.6 %; Eosinophils # (A) 0.23 X 10*3/uL (0.04-0.35); Eosinophils % (A) 2.7 %; HCT 40.9 % (37.2-46.3); HGB 13.2 g/dL (12.0-15.0); Lymphocytes # (A) 2.49 X 10*3/uL (0.90-5.00); MCH 30.2 pg (27.0-32.0); MCHC 32.3 g/dL (32.0-37.0); MCV 93.6 fL (80.0-97.0); Mean Platelet Volume 10.1 fL (9.5-12.2); Monocytes # (A) 0.53 X 10*3/uL (0.20-1.00); Monocytes % (A) 6.2 %; Neutrophils # (A) 5.26 X 10*3/uL (1.80-7.70); Neutrophils % (A) 61.2 %; Platelet Count 336 X 10*3/uL (140-440); RBC 4.37 X 10*6/uL (4.10-5.20); RDW 12.3 % (11.5-14.5); WBC 8.59 X 10*3/uL (4.50-10.00)
[2020-10-02 22:08] LABS: African American GFR (CKD) 77.8 (60.0-200.0); Albumin 4.1 g/dL (3.80-4.90); Albumin/Globulin Ratio 1.86 (1.60-3.17); Anion Gap 8.3 mmol/L (4.00-12.00); BUN/Creat Ratio 11.11 Ratio (12.00-20.00); Calcium 9.4 mg/dL (8.7-10.3); Carbon Dioxide 25.7 mmol/L (21.6-31.8); Chol/HDL Ratio 4.21; Globulin 2.2 g/dL (1.6-3.3); LDL Cholesterol,Calculated 84.4 mg/dL (0.0-131.0); Non-African American GFR(CKD) 67.1 (60.0-200.0); Potassium 4.3 mmol/L (3.5-5.5); Total Bilirubin 0.6 mg/dL (0.3-1.2); Total Protein 6.3 g/dL (6.2-8.2); VLDL Calculation 24.6 mg/dL (5.00-40.00)
== END | disposition home or self-care (01) ==
LOC: LABWHC1 09:15
PROVIDERS: ATTEND Family Medicine
DX: E11.9 Type 2 diabetes mellitus without complications (principal)
CPT/HCPCS: 36415; 80053; 80061; 84443; 85025

== ENCOUNTER → 2020-11-02 | Outpatient (CLI) | payer MEDICARE, OTHER ==
[2020-11-02 17:18] LABS: African American GFR (CKD) 68.5 (60.0-200.0); Anion Gap 9.7 mmol/L (4.00-12.00); Calcium 9.5 mg/dL (8.7-10.3); Carbon Dioxide 25.3 mmol/L (21.6-31.8); Non-African American GFR(CKD) 59.1 (60.0-200.0); Potassium 4.7 mmol/L (3.5-5.5)
== END | disposition home or self-care (01) ==
LOC: LABWHC1 10:51
PROVIDERS: ATTEND Nurse Practitioner Adult Health
DX: I10 Essential (primary) hypertension (principal)
CPT/HCPCS: 36415; 80048

== ENCOUNTER → 2021-01-04 | Outpatient (CLI) | payer MEDICARE, OTHER ==
[2021-01-04 20:53] LABS: African American GFR (CKD) 58.4 (60.0-200.0); Anion Gap 13.8 mmol/L (4.00-12.00); BUN/Creat Ratio 22.54 Ratio (12.00-20.00); Blood Urea Nitrogen 25.7 mg/dL (9.0-27.0); Calcium 9.2 mg/dL (8.7-10.3); Carbon Dioxide 22.2 mmol/L (21.6-31.8); Non-African American GFR(CKD) 50.4 (60.0-200.0); Potassium 4.8 mmol/L (3.5-5.5)
== END | disposition home or self-care (01) ==
LOC: LABWHC1 10:49
PROVIDERS: ATTEND Nurse Practitioner Adult Health
DX: I10 Essential (primary) hypertension (principal)
CPT/HCPCS: 36415; 80048

== ENCOUNTER → 2021-11-18 | Outpatient (CLI) | payer MEDICARE, OTHER ==
[2021-11-18 14:45] LABS: Basophils # (A) 0.06 X 10*3/uL (0.00-0.10); Basophils % (A) 0.6 %; Eosinophils # (A) 0.21 X 10*3/uL (0.04-0.35); Eosinophils % (A) 2.2 %; HCT 37.4 % (37.2-46.3); HGB 12.5 g/dL (12.0-15.0); Immature Grans, Automated 0.4 %; Lymphocytes % (A) 25.8 %; MCH 32.1 pg (27.0-32.0); MCHC 33.4 g/dL (32.0-37.0); MCV 96.1 fL (80.0-97.0); Mean Platelet Volume 10.2 fL (9.5-12.2); Monocytes # (A) 0.52 X 10*3/uL (0.20-1.00); Monocytes % (A) 5.4 %; NRBC Per 100 WBC 0 /100 WBCS (0.0-0.0); Neutrophils # (A) 6.35 X 10*3/uL (1.80-7.70); Neutrophils % (A) 65.6 %; Platelet Count 326 X 10*3/uL (140-440); RBC 3.89 X 10*6/uL (4.10-5.20); RDW 13.1 % (11.5-14.5); WBC 9.68 X 10*3/uL (4.50-10.00)
[2021-11-18 14:52] LABS: Chol/HDL Ratio 4.91 Ratio; LDL Cholesterol,Calculated 100.4 mg/dL (0.0-131.0)
[2021-11-18 14:53] LABS: ALT 13 U/L (8-44); AST 17 U/L (13-35); African American GFR (CKD) 49.5 (60.0-200.0); Albumin 4.2 g/dL (3.8-4.9); Albumin/Globulin Ratio 1.67 (1.60-3.17); Alkaline Phosphatase 58 U/L (41-126); BUN/Creat Ratio 16.23 Ratio (12.00-20.00); Blood Urea Nitrogen 21.1 mg/dL (9.0-27.0); Calcium 9.5 mg/dL (8.7-10.3); Carbon Dioxide 27.5 mmol/L (20.0-27.5); Chloride 104 mmol/L (96-109); Globulin 2.5 g/dL (1.6-3.3); Glucose 151 mg/dL (70-110); Non-African American GFR(CKD) 42.7 (60.0-200.0); Potassium 4.7 mmol/L (3.5-5.5); Sodium 141 mmol/L (135-145); Total Protein 6.7 g/dL (6.2-8.2)
== END | disposition home or self-care (01) ==
LOC: LABWHC1 07:19
PROVIDERS: ATTEND Family Medicine
DX: E11.9 Type 2 diabetes mellitus without complications (principal)
CPT/HCPCS: 36415; 80053; 80061; 83036; 84443; 85025

== ENCOUNTER → 2022-05-25 | Outpatient (CLI) | payer MEDICARE, OTHER ==
[2022-05-25 16:30] LABS: Basophils # (A) 0.08 X 10*3/uL (0.00-0.10); Basophils % (A) 0.8 %; HCT 37.9 % (37.2-46.3); HGB 12.4 g/dL (12.0-15.0); Immature Grans, Automated 0.5 %; Lymphocytes # (A) 2.37 X 10*3/uL (0.90-5.00); Lymphocytes % (A) 23.8 %; MCH 31.7 pg (27.0-32.0); MCHC 32.7 g/dL (32.0-37.0); MCV 96.9 fL (80.0-97.0); Mean Platelet Volume 9.8 fL (9.5-12.2); NRBC Per 100 WBC 0 /100 WBCS (0.0-0.0); Neutrophils # (A) 6.64 X 10*3/uL (1.80-7.70); Neutrophils % (A) 66.9 %; Platelet Count 376 X 10*3/uL (140-440); RBC 3.91 X 10*6/uL (4.10-5.20); RDW 13.1 % (11.5-14.5); WBC 9.94 X 10*3/uL (4.50-10.00)
[2022-05-25 16:52] LABS: ALT 14 U/L (8-44); AST 15 U/L (13-35); African American GFR (CKD) 48.3 (60.0-200.0); Albumin 4.2 g/dL (3.8-4.9); Albumin/Globulin Ratio 1.81 (1.60-3.17); Alkaline Phosphatase 61 U/L (41-126); BUN/Creat Ratio 14.47 Ratio (12.00-20.00); Blood Urea Nitrogen 19.1 mg/dL (9.0-27.0); Calcium 9.7 mg/dL (8.7-10.3); Carbon Dioxide 25.1 mmol/L (20.0-27.5); Chloride 102 mmol/L (96-109); Chol/HDL Ratio 4.48 Ratio; Globulin 2.3 g/dL (1.6-3.3); Glucose 142 mg/dL (70-110); LDL Cholesterol,Calculated 94.7 mg/dL (0.0-131.0); Non-African American GFR(CKD) 41.6 (60.0-200.0); Potassium 4.7 mmol/L (3.5-5.5); Sodium 141 mmol/L (135-145); Total Protein 6.5 g/dL (6.2-8.2)
== END | disposition home or self-care (01) ==
LOC: LABWHC1 10:03
PROVIDERS: ATTEND Family Medicine
DX: E03.9 Hypothyroidism, unspecified (principal)
CPT/HCPCS: 36415; 80053; 80061; 82043; 82570; 83036; 84439; 84443; 85025

== ENCOUNTER 2024-07-30 07:52 | Day surgery (SDC) | payer MEDICARE, OTHER ==
[~2024-07-30 07:52] MED LIST changes: -SODIUM CHLORIDE 0.9% 1,000 ML IV SCH
[2024-07-30] MEDS: IV FLUID CONTINUATION 1,000 ML IV ONE (08:10)
[2024-07-30 08:13] VITALS: TEMP 97.9
[2024-07-30 08:38] LABS: Glucose,Whole Blood 138 mg/dL (70-110)
[2024-07-30] MEDS ORDERED: PROPOFOL 10 MG/ML 20 ML VIAL IV ONE (08:52)
[2024-07-30] MEDS: LACTATED RINGERS 1,000 ML IV ONE ×2 (08:54→09:15)
--- NOTE | 2024-07-30 09:16 | P.PCN ---
Date of Procedure: 07/30/24 Procedure(s) Performed: BRIEF HISTORY: Patient is a 69-year-old pleasant white female scheduled for an elective colonoscopy as a part of screening for colon cancer and family history of colon cancer. Her sister was diagnosed with colon cancer at age 57 and her brother at age 40. PROCEDURE PERFORMED: Colonoscopy with biopsy. PREOPERATIVE DIAGNOSIS: Screening for colon cancer and family history of colon cancer. IV sedation per Anesthesia. PROCEDURE: After informed consent was obtained, the patient, was brought into the endoscopy unit. IV sedation was administered by Anesthesia under continuous monitoring. Digital rectal examination was normal. Initially the Olympus CF-160 flexible video colonoscope was then inserted in the rectum, gradually advanced into the cecum without any difficulty. Careful examination was performed as the scope was gradually being withdrawn. Ileocecal valve and the appendiceal orifice were visualized and appeared normal. Prep was excellent. Mucosa of the cecum appeared normal. In the ascending colon there was a 4 mm sessile polyp removed with cold biopsy. Rest of the, ascending colon, transverse colon, descending colon, sigmoid colon, and rectum appeared normal. Scattered sigmoid diverticulosis seen. Retroflexion was performed in the rectum and no lesions were seen. The patient tolerated the procedure well. IMPRESSION: 4 mm ascending colon polyp status post cold biopsy Scattered sigmoid diverticulosis. RECOMMENDATIONS: Findings of this examination were discussed with the patient as well as her family. She was advised to follow-up with the biopsy results. Recommended repeat colonoscopy in 5 years because of the strong family history of colon cancer..
[2024-07-30 09:40] VITALS: PULSE 89; RESP 16
[2024-07-30 09:42] VITALS: BP 97/55
== END 2024-07-30 10:16 | disposition home or self-care (01) ==
LOC: ORWHC2ENDO 07:52
PROVIDERS: ATTEND Internal Medicine Gastroenterology
DX: Z12.11 Encounter for screening for malignant neoplasm of colon (principal); Z80.0 Family history of malignant neoplasm of digestive organs; D12.2 Benign neoplasm of ascending colon; K57.30 Diverticulosis of large intestine without perforation or abscess without bleeding
CPT/HCPCS: 45380; J2704; 88305